=== PATIENT | male | born 2000 | race Caucasian/White ===

== ENCOUNTER 2020-07-26 16:19 | Inpatient (IN) | payer OTHER, SELFPAY ==
[2020-07-26] VITALS (15 sets, daily range): BP systolic 107–179; BP diastolic 50–97; PULSE 121–161; RESP 18–30; TEMP 36.4–36.8; O2SAT 96–99; BMI 25.6; BMI 26.0; BMI 25.9
--- NOTE | 2020-07-26 16:52 | EKG12_ITS ---
Test Reason : CP Blood Pressure : / mmHG Vent. Rate : 126 BPM Atrial Rate : 126 BPM P-R Int : 152 ms QRS Dur : 084 ms QT Int : 274 ms P-R-T Axes : 069 051 035 degrees QTc Int : 396 ms Poor data quality, interpretation may be adversely affected Sinus tachycardia Possible Left atrial enlargement Confirmed by RAHUL MCKEON, KAYDEN ([id number]), international editorial producer ZAIDA DRUMMOND ([id number]) on 07/27/2020 1:13:07 PM Referred By: MANUEL Confirmed By:KAYDEN KAY MD
--- NOTE | 2020-07-26 16:54 | ED.VIS.GEN ---
History of Present Illness Chief Complaint: Nausea/Vomiting Informant: Patient Onset: Today Current Severity: Moderate Maximum Severity: Moderate Narrative: Patient present secondary to nausea and vomiting all day today. He is not been able to keep down even liquids. He states he started getting some cramping in his abdomen and back is concerned that he is too dehydrated. He is type I diabetic and has an insulin pump. He has not been able to check his blood sugar. He does report that he is at the end of his 2-week contact tracing after being exposed to Covid and he has had no symptoms until today. - Past Medical History (1) Diabetes type I Status: Chronic Past Medical History - Allergies and Home Meds Allergies/Adverse Reactions: Allergies No Known Allergies Allergy (Verified 07/26/20 16:19) Primary Care Physician: Jhon Larry III, MD [Primary Care Provider] - Prior records reviewed: Yes Smoking Status: Never smoker Review of Systems General: Denies: Chills, Fever Eyes: Denies: Visual changes - bilaterally ENT: Denies: Bilateral ear pain Cardiovascular: Reports: Chest pain - Patient developed chest pain after having blood work drawn Respiratory: Denies: Dyspnea Gastrointestinal: Reports: Abdominal pain, Nausea, Vomiting. Denies: Diarrhea Genitourinary: Denies: Dysuria Musculoskeletal: Denies: Swelling, Extremity Pain Skin: Denies: Rash Neurological: Denies: Headache Hematologic: Denies: Easy bruising, Easy bleeding Allergy: Denies: Uticaria Physical Exam Vital Signs/Narrative: Vital Signs Temp Pulse Resp BP Pulse Ox 07/26/20 16:20 97.6 F L 135 H 18 143/90 H 97 07/26/20 16:19 121 H 19 H 98 Inital Vital Signs reviewed: Yes General: Well nourished, Well developed ENT: Dry mucous membranes Neck: Supple Cardiovascular: Tachycardia Respiratory: No distress, CTA bilaterally Abdomen: Soft, Nontender, Hypoactive bowel sounds Extremities: Nontender Skin: Normal color Neurological: Alert, Oriented x3 Psychological: - - Anxious Diagnostic/Tx/Re-eval Chest X-Ray - ED: 1 View, Read by ED Physician, Normal, Heart, Lungs, Mediastinum Impressions Chest X-Ray 07/26/20 16:55 IMPRESSION: No acute thoracic pathology. Electronically Signed: Jace Regan MD at 17:19 EST Tel , Service support , 07/26/20 16:55 Chest 1 View (Portable) [RAD] Stat Laboratory Results 07/26/20 07/26/20 07/26/20 16:25 16:25 16:25 WBC 33.0 H* RBC 5.96 Hgb 18.3 H* Hct 52.0 MCV 87.2 MCH 30.7 MCHC 35.2 RDW Std Deviation 38.1 RDW Coeff of Maribell 12.0 Plt Count 610 H MPV 10.2 Immature Gran % (Auto) 1.200 H Neut % (Auto) 84.4 H Lymph % (Auto) 9.5 L Mcnairy % (Auto) 4.4 Eos % (Auto) 0.0 Baso % (Auto) 0.5 Absolute Neuts (auto) 27.9 H Absolute Lymphs (auto) 3.13 Nucleated RBC % 0 Sodium 132 L Potassium 5.4 H Chloride 97 L Carbon Dioxide 8.0 L* Anion Gap 27 H BUN 25 H Creatinine 1.94 H Estim Creat Clear Calc 58.27 Est GFR (MDRD) Af Amer 56 L Est GFR (MDRD) Non-Af 46 L BUN/Creatinine Ratio 12.9 Glucose 562 H* Calcium 10.0 Phosphorus 8.6 H Magnesium 2.9 H Total Bilirubin 0.70 AST 14 L ALT 26 Alkaline Phosphatase 165 H Total Protein 9.3 H Albumin 5.0 Globulin 4.3 H Albumin/Globulin Ratio 1.2 Acetone Level MODERATE H POC Glucose 07/26/20 17:08 WBC RBC Hgb Hct MCV MCH MCHC RDW Std Deviation RDW Coeff of Maribell Plt Count MPV Immature Gran % (Auto) Neut % (Auto) Lymph % (Auto) Mcnairy % (Auto) Eos % (Auto) Baso % (Auto) Absolute Neuts (auto) Absolute Lymphs (auto) Nucleated RBC % Sodium Potassium Chloride Carbon Dioxide Anion Gap BUN Creatinine Estim Creat Clear Calc Est GFR (MDRD) Af Amer Est GFR (MDRD) Non-Af BUN/Creatinine Ratio Glucose Calcium Phosphorus Magnesium Total Bilirubin AST ALT Alkaline Phosphatase Total Protein Albumin Globulin Albumin/Globulin Ratio Acetone Level POC Glucose > 500 H* - EKG Initial EKG Interpretation: Sinus Tachycardia - Sinus tach at 117. Irregular baseline especially in the lateral precordial leads, but no acute ischemia noted. Follow-up EKG Interpretation: Sinus Tachycardia - Sinus tach at 126 with poor baseline in lead V3, V4, and V6. These leads are essentially nonreadable. No acute ischemia noted. - Medical Decision Making Patient was given Reglan and Benadryl along with a dose of Protonix to help with acid reflux. He developed chest pain after labs were drawn. EKG x2 reveals no ischemia. Chest x-ray is unremarkable. Blood work does confirm patient is in DKA. 2 L of IV fluid of been ordered along with insulin drip. Because he has been in contact tracing for Covid I will obtain a rapid Covid test, however my suspicion for this is extremely low. Regardless he will require admission to ICU for DKA. I will speak with the hospitalist. - Critical Care Time Critical care time (excluding procedures): 30-74 minutes ED Disposition - Plan for ED Patient: Disposition: Acute Care Hospital [facility] Diagnosis: DKA (diabetic ketoacidoses) Referrals: Jhon Larry III, MD [Primary Care Provider] -
--- NOTE | 2020-07-26 16:55 | RAD_ITS ---
STUDY: X-RAY CHEST REASON FOR EXAM: Male, 19 years old. Chest pain TECHNIQUE: Frontal view of the chest COMPARISON: None. FINDINGS: The lungs are clear. There are no pleural effusions. There is no pneumothorax. The heart is normal in size. The visualized osseous structures are within normal limits. RAD/Chest 1 View (Portable) IMPRESSION: No acute thoracic pathology. Electronically Signed: Jace Regan MD at 17:19 EST Tel , Service support ,
--- NOTE | 2020-07-26 17:01 | EKG12_ITS ---
Test Reason : VOMITING Blood Pressure : / mmHG Vent. Rate : 117 BPM Atrial Rate : 117 BPM P-R Int : 146 ms QRS Dur : 086 ms QT Int : 324 ms P-R-T Axes : 077 064 048 degrees QTc Int : 451 ms Sinus tachycardia Possible Left atrial enlargement Borderline ECG Confirmed by RAHUL MCKEON, KAYDEN ([id number]), senior editor ZAIDA DRUMMOND ([id number]) on 07/27/2020 1:16:06 PM Referred By: MANUEL Confirmed By:KAYDEN KAY MD
[2020-07-26] MEDS: Metoclopramide 10 MG/2 ML Vial IV (17:02)
[2020-07-26] MEDS: DiphenhydrAMINE 50 MG/ML Syringe 25 MG IV (17:02)
[2020-07-26 17:04] LABS: Absolute Lymphocyte Count 3.13 X10^3/uL (0.83-4.51); Absolute Neutrophil Count 27.9 X10^3/uL (2.0-7.7); Basophil# 0.17 X10^3/uL; Basophil% 0.5 % (0-1); Eosinophil# 0.01 X10^3/uL; Lymphocyte # 3.13 X10^3/ul (4.0); Lymphocyte % 9.5 % (19-41); Mean Corp Hgb Conc 35.2 g/dL (32-36); Mean Corpuscular Hgb 30.7 pg (27.0-32.0); Mean Corpuscular Volume 87.2 fL (80-94); Mean Platelet Vol. 10.2 fl (6.2-12.0); Monocyte# 1.44 X10^3/uL; Monocyte% 4.4 % (0-10); NRBC Flagged by Analyzer 0 % (0-5); Neutrophil # 27.85 X10^3/uL (2.7-7.7); Neutrophil % 84.4 % (47-70); POSITIVE COUNT YES; POSITIVE DIFFERENTIAL YES; Platelet Count 610 K/mm3 (150-450); RBC Distribution Width SD 38.1 fl (35.1-43.9); Red Blood Count 5.96 M/mm3 (4.6-6.2)
[2020-07-26] MEDS: 0.9% Normal Saline 1,000 ML 999 ML IV ×3 (17:08→18:30)
[2020-07-26 17:10] LABS: Differential Indicated SCAN CRITERIA MET; Hemoglobin 18.3 g/dL (13.0-16.5)
[2020-07-26 17:15] LABS: Bedside Glucose > 500 mg/dL (70-110)
--- NOTE | 2020-07-26 17:18 | ED.RN ---
PT C/O INCREASED CHEST PAIN. O2 VIA NC PLACED. CALLED FOR EKG. DR CHOUDHURY NOTIFIED
[2020-07-26 17:26] LABS: ALB/GLOB Ratio 1.2 RATIO (0.9-2.4); AST(SGOT) 14 U/L (15-37); Alanine Aminotransfer ALT/SGPT 26 U/L (16-61); Alkaline Phosphatase 165 U/L (45-117); Anion Gap 27 (5-15); BUN 25 mg/dL (7-18); BUN/Creat Ratio 12.9 RATIO (10-20); Chloride 97 mmol/L (98-107); Creatinine, Serum 1.94 mg/dL (0.70-1.30); EST Glomerular Filtration Rate 46 mL/min (>60); Est Glom Filt Rate - Afr Amer 56 mL/min (>60); Estimated Creatinine Clearance 58.27 ml/min; Globulin 4.3 g/dL (2.2-4.2); Glucose 562 mg/dL (74-106); Magnesium 2.9 mg/dL (1.6-2.6); Phosphorus 8.6 mg/dL (2.5-4.9); Potassium 5.4 mmol/L (3.5-5.1); Protein, Total 9.3 g/dL (6.4-8.2); Sodium Level 132 mmol/L (136-145)
[2020-07-26 17:34] LABS: Differential Comment SEE COMMENTS
[2020-07-26 17:35] LABS: Platelet Estimate MKD INC (ADEQ)
[2020-07-26 17:37] LABS: Anisocytosis RARE; Red Cell Morphology N CHROM NORMAL (NORM C&C)
--- NOTE | 2020-07-26 17:39 | NURSING ---
HOSPITALIST PAGED DR BALLESTEROS FOR DR CHOUDHURY
--- NOTE | 2020-07-26 17:44 | NURSING ---
ICU [facility]
[2020-07-26] MEDS: HYDROmorphone 0.5 MG/0.5 ML SYRINGE IV ×2 (17:55→21:39)
--- NOTE | 2020-07-26 17:58 | NURSING ---
CV ICU 203
--- NOTE | 2020-07-26 17:59 | HP.PCM_ITS ---
Problem List (1) HIPOLITO (acute kidney injury) Status: Acute (2) Hyperkalemia Status: Acute (3) Leukocytosis Status: Acute (4) Erythrocytosis Status: Acute (5) Thrombocytosis Status: Acute (6) Hyponatremia Status: Acute (7) Hypochloremia Status: Acute (8) Hyperphosphatemia Status: Acute (9) Hypermagnesemia Status: Acute History of Present Illness Date of Admission: 07/26/20 Mr. Lacey is a 19 year old WM with a PMH of DM-1 that was diagnosed when he was 15 years old who presented to the emergency department on 07/26/2020 with abdominal pain nausea and vomiting that started approximately 3 AM this morning. The patient states he was in his normal state of health yesterday but at approximately 3 AM started having significant abdominal pain with nausea and vomiting and at about 9-10 o'clock this morning he took off his insulin pump. He had a recent pump site infection on the left abdomen and has just finished antibiotics for this. He is also just finished contact tracing for COVID-19 and therefore rapid Covid test was done in the emergency department which was negative upon admission. He is a patient at [facility] with Dr. William Wyatt he states that he has been on an insulin pump for approximately a year but has been questioning how its functioning lately with his recent site infection on the left. He reports this is his first episode of DKA. Other than his nausea and vomiting, he is complaining of back pain and extreme thirst. Vital signs in the emergency department show the patient is afebrile with a heart rate in the 120s to 140s, he is hypertensive, he is tachypneic and his oxygen saturations are within normal limits on room air from 97 to 98%. His laboratory data shows a marked leukocytosis with a white count of 33, and elevated hemoglobin at 18.3 and elevated platelet count at 610. I suspect this is all secondary to hemoconcentration. His BMP shows mild hyponatremia at 132, mild hyper kalemia at 5.4 is serum bicarb is 8, his anion gap is 27, his BUN is 25 and his serum creatinine is 1.94. LFTs are within normal limits. His serum glucose on the BMP was 562 and he has moderate acetone level. He will be admitted to the ICU for IV fluids and an insulin drip until his DKA resolves. Past Medical History Past Medical History (Chronic Problems): Chronic Problems Diabetes type I (Chronic) Allergies No Known Allergies Allergy (Verified 07/26/20 16:19) Home Medications: Ambulatory Orders Medication Instructions Recorded Insulin Basal Pump (Pt's Own) 1 unit CONT INF UD 07/26/20 [Pump, Basal] Surgical History: no surgical history Lives: With Family Smoking Status: Never smoker Tobacco Use: Chew Alcohol: Rare Drugs: None - *Family History Maternal History Items: No pertinent history Paternal History Items: No pertinent history Review of Systems Constitutional: Reports: Malaise, Weakness, Fatigue. Denies: Anorexia, Chills, Fever, Night Sweats, Weight Change Eyes: Denies: Blurred vision, Double vision, Drainage, Eyelid Inflammation, Pain, Redness, Vision Change HEENT: Reports: - - Very dry mouth. Denies: Difficulty Hearing, Difficulty Swallowing, Ear Pain, Eye Pain, Hard of Hearing, Head Aches, Hearing Changes, Nasal bleeding, Nasal Congestion, Post Nasal Drip, Sinus Congestion, Sinus Drainage, Sore Throat, Visual Changes Cardiovascular: Denies: Chest Pain, Claudication, Chest Pressure, Chest Tightness, Edema, Heaviness, Light Headedness, Orthopnea, Palpitations, Paroxysmal Noc. Dyspnea, Syncope Respiratory: Denies: Cough, Hemoptysis, Pleuritic Pain, Shortness of Breath, Shortness of breath at rest, Shortness of breath upon exertion, Sputum production, Wheezing Gastrointestinal: Reports: Abdominal Pain, Nausea, Vomiting. Denies: Constipation, Diarrhea, Dyspepsia, Hematemesis, Hematochezia, Melena Genitourinary: Denies: Dysuria, Frequency, Hematuria, Hesitancy, Incontinence, Nocturia, Retention, Urgency Musculoskeletal: Reports: Back Pain, Muscle pain. Denies: Hand Pain, Joint Pain, Joint stiffness, Joint swelling, Joint Tenderness, Neck Pain Skin: Denies: Dryness, Jaundice, Lesions, Pruritis, Rash, Skin Changes, Wounds Neurological: Denies: Balance problems, Blurred vision, Double vision, Change in Speech, Slurred speech, Confusion, Difficulty swallowing, Focal weakness, Headaches, Incoordination, Numbness, Tingling, Tremor, Seizures Psychiatric: Denies: Anxiety, Depression Endocrine: Reports: Polydipsia. Denies: Change in Body Habitus, Heat/ Cold Intolerance, Polyuria Hematologic/ Lymphatic: Denies: Adenopathy, Anemia, Easy Bruising, Easy Bleeding, Petechiae, Purpura VTE Information - Inpt Only VTE Present on Admission: No VTE Mechan Device Prophylaxis: None VTE Pharm Prophylaxis ordered?: Yes Patient Problems: Active and Suspected Problems DKA (diabetic ketoacidoses) (Acute) - Physical Exam Vitals/I&O's: Vital Signs Temp Pulse Resp BP Pulse Ox 97.8 F 140 H 21 H 163/87 H 99 07/26/20 17:45 07/26/20 17:45 07/26/20 17:45 07/26/20 17:45 07/26/20 17:45 Oxygen Flow Rate (L/min) 2 Oxygen Delivery Method Nasal Cannula Weight: 76.4 kg Body Mass Index (BMI) 25.6 Finger Stick Blood Glucose 561 Intake and Output for Last 24 Hours 07/24/20 07/25/20 07/26/20 23:59 23:59 23:59 Intake Total 110 / 110 Balance 110 / 110 General: Alert, Oriented x3, Cooperative, Well developed, Well nourished, - - Patient appears uncomfortable and is writhing around in bed states this is related to his back pain that is having right now HEENT: Atraumatic, PERRLA, EOMI, Normocephalic, EAC Clear Oral: No Gingival or Mucosal Lesions/ Ulcerations, Dry Mucosa Neck: Supple, No JVD, Negative Carotid Bruits, Negative Hepatojugular Reflux, No Nodes, No Nuchal Rigidity, Trachea Midline, Thyroid Normal Size and Texture Lungs: Clear to auscultation, Normal air movement, No rhonchi, No wheeze, No rales Cardiovascular: Regular Rhythm, Normal S1, Normal S2, No murmurs, No Ectopic Activity, No rub noted, No Gallop, Tachycardic Abdomen: Bowel Sounds Present, Soft, Non Tender, Non-Distended, - - Left abdominal insulin pump site no significant erythema noted but does appear that there may have been some recent infection-no purulent drainage, no tenderness No significant abnormality in the right abdominal area where his insulin pump is normally located Extremities: No clubbing, No cyanosis, No edema, Capillary Refill Less than 3 Seconds, Peripheral Pulses Normal Skin: No rashes, No breakdown Musculoskeletal: No Tenderness to Palpation of Joints or Extremities, No Muscle Wasting Lymphatic: No Cervical, Supraclavicular, or Inguinal Adenopathy Neurological: Cranial nerves II-XII grossly intact, Deep Tendon Reflexes 2+/4 and Symmetrical, Neuro grossly intact, Motor Exam 5/5 strength throughout, Mus louisa tone normal, Sensory exam intact to light touch and pain, Coordination normal Psych/Mental Status: Normal Affect, Appropriate Laboratory Results 07/26/20 16:25: Sodium 132 L, Potassium 5.4 H, Chloride 97 L, Carbon Dioxide 8.0 L*, Anion Gap 27 H, BUN 25 H, Creatinine 1.94 H, Estim Creat Clear Calc 58.27, Est GFR (MDRD) Af Amer 56 L, Est GFR (MDRD) Non-Af 46 L, BUN/Creatinine Ratio 12.9, Glucose 562 H*, Calcium 10.0, Phosphorus 8.6 H, Magnesium 2.9 H, Total Bilirubin 0.70, AST 14 L, ALT 26, Alkaline Phosphatase 165 H, Total Protein 9.3 H, Albumin 5.0, Globulin 4.3 H, Albumin/Globulin Ratio 1.2 07/26/20 16:25: Acetone Level MODERATE H 07/26/20 16:25: WBC 33.0 H*, RBC 5.96, Hgb 18.3 H*, Hct 52.0, MCV 87.2, MCH 30. 7, MCHC 35.2, RDW Std Deviation 38.1, RDW Coeff of Maribell 12.0, Plt Count 610 H, MPV 10.2, Immature Gran % (Auto) 1.200 H, Neut % (Auto) 84.4 H, Lymph % (Auto) 9.5 L, Archer % (Auto) 4.4, Eos % (Auto) 0.0, Baso % (Auto) 0.5, Absolute Neuts (auto) 27.9 H, Absolute Lymphs (auto) 3.13, Nucleated RBC % 0, Differential Comment SEE COMMENTS, Diff Path Review Jessie maciel Platelet Estimate [employer], RBC Morphology N CHROM, Anisocytosis RARE 07/26/20 17:08: POC Glucose > 500 H* Current Medications Dextrose (Dextrose 50%-Water 25 Gm/50 Ml Disp.Syrin) 0 gm IV X1 PRN; Protocol PRN Reason: Hypoglycemia Protocol Sodium Chloride () 1,000 mls @ 999 mls/hr IV .Q1H1M [facility] Stop: 07/26/20 18:55 Last Admin: 07/26/20 17:08 Dose: 999 mls/hr Documented by: Insulin Human Lispro 100 unit/ (Sodium Chloride) 100 mls @ 7.64 mls/hr CONT INF .[id number] [facility]; Protocol Assessment/Plan All Active Problems DKA (diabetic ketoacidoses) (Acute) HIPOLITO (acute kidney injury) (Acute) Hyperkalemia (Acute) Leukocytosis (Acute) Erythrocytosis (Acute) Thrombocytosis (Acute) Hyponatremia (Acute) Hypochloremia (Acute) Hyperphosphatemia (Acute) Hypermagnesemia (Acute) DKA -DKA protocol with insulin drip and IV fluids -N.p.o. except for ice chips -Repeat acetone at midnight and then again in the a.m. -Every 4 hours BMPs -Every hour blood sugars -Electrolyte replacement as needed DM-1 -Diagnosed in 2017 -Patient has had an insulin pump for approximately a year -Patient follows with Dr. William Wyatt and Tyra Ross at [facility] -Will need insulin pump brought in after DKA is resolved -Check TSH HIPOLITO secondary to dehydration -Aggressive IV fluids -Repeat BMP in a.m. Anion gap metabolic acidosis -Treat DKA -Serial BMPs Hyperkalemia -Secondary to cellular shifts with acidosis -Expect hypokalemia to become a problem as acidosis resolved -We will replace potassium as needed Hypermagnesemia -Should resolve with IV fluids and acidosis correction -Repeat in a.m. Hyperphosphatemia -Should resolve with IV fluids and acidosis correction -Repeat in a.m. Leukocytosis -Patient is afebrile -Doubt infection -Suspect hemoconcentration -IV fluids repeat CBC in a.m. -No need for IV antibiotics at this time Erythrocytosis -2/2 Hemoconcentration due to dehydration -Repeat CBC in a.m. Thrombocytosis -2/2 hemoconcentration due to dehydration -Repeat CBC in a.m. Hypovolemic hyponatremia -IV fluids -Repeat BMP in a.m. Recent superficial abdominal skin infection secondary to insulin pump site -Patient recently completed antibiotics for this -Site appears improved overall with no purulent drainage or erythema surrounding -Recommend frequent site changes DVT prophylaxis -Lovenox CODE STATUS -Full code Critical care time greater than 31 minutes Procedures: [id number] Critial Care 1st Hr
[2020-07-26 18:50] LABS: Magnesium 2.7 mg/dL (1.6-2.6)
[2020-07-26] MEDS: Orphenadrine 60 MG/2 ML Ampul IV (19:18)
[2020-07-26] MEDS: 0.9% Normal Saline 1,000 ML 500 ML IV (19:35)
[2020-07-26 19:41] LABS: Bedside Glucose > 500 mg/dL (70-110)
[2020-07-26 19:41] LABS: Bedside Glucose 458 mg/dL (70-110)
[2020-07-26 19:45] LABS: Hemoglobin A1c 10.7 % (3.8-5.6)
[2020-07-26] MEDS: 0.9% Normal Saline 1,000 ML 250 ML IV (21:33)
[2020-07-26 22:55] LABS: Bedside Glucose 362 mg/dL (70-110)
[2020-07-26 22:55] LABS: Bedside Glucose 382 mg/dL (70-110)
[2020-07-26 23:34] LABS: Anion Gap 19 (5-15); BUN 20 mg/dL (7-18); Calcium,Total 8.5 mg/dL (8.5-10.1); Chloride 111 mmol/L (98-107); Creatinine, Serum 1.67 mg/dL (0.70-1.30); EST Glomerular Filtration Rate 55 mL/min (>60); Est Glom Filt Rate - Afr Amer 67 mL/min (>60); Estimated Creatinine Clearance 67.69 ml/min; Glucose 342 mg/dL (74-106); Potassium 6.1 mmol/L (3.5-5.1); Sodium Level 137 mmol/L (136-145)
[2020-07-27] VITALS (21 sets, daily range): BP systolic 103–132; BP diastolic 43–73; PULSE 80–121; RESP 14–22; TEMP 36.6–37.1; O2SAT 95–99
[2020-07-27] MEDS: Sodium Polystyrene Sulfonate 15 GM/60 ML UDC PO (00:25)
[2020-07-27 00:56] LABS: Bedside Glucose 360 mg/dL (70-110)
[2020-07-27 00:56] LABS: Bedside Glucose 313 mg/dL (70-110)
[2020-07-27] MEDS: 0.9% Normal Saline 1,000 ML 150 ML IV (01:35)
[2020-07-27 03:16] LABS: Bedside Glucose 313 mg/dL (70-110)
[2020-07-27 03:16] LABS: Bedside Glucose 273 mg/dL (70-110)
[2020-07-27 03:25] LABS: Bedside Glucose 281 mg/dL (70-110)
[2020-07-27 03:29] LABS: Absolute Lymphocyte Count 3.03 X10^3/uL (0.83-4.51); Absolute Neutrophil Count 21.8 X10^3/uL (2.0-7.7); Basophil# 0.05 X10^3/uL; Basophil% 0.2 % (0-1); Eosinophil# 0.03 X10^3/uL; Eosinophils% 0.1 % (0-5); Hemoglobin 15.3 g/dL (13.0-16.5); Lymphocyte # 3.03 X10^3/ul (4.0); Lymphocyte % 11.2 % (19-41); Mean Corp Hgb Conc 35.6 g/dL (32-36); Mean Corpuscular Hgb 30.4 pg (27.0-32.0); Mean Corpuscular Volume 85.5 fL (80-94); Mean Platelet Vol. 9.4 fl (6.2-12.0); Monocyte% 6.7 % (0-10); NRBC Flagged by Analyzer 0 % (0-5); Neutrophil # 21.83 X10^3/uL (2.7-7.7); Neutrophil % 80.8 % (47-70); POSITIVE DIFFERENTIAL YES; Platelet Count 396 K/mm3 (150-450); RBC Distribution Width CV 12.4 % (11.6-14.6); RBC Distribution Width SD 38.4 fl (35.1-43.9); Red Blood Count 5.03 M/mm3 (4.6-6.2)
[2020-07-27 03:30] LABS: Differential Indicated SCAN CRITERIA MET
[2020-07-27 03:54] LABS: Anion Gap 13 (5-15); BUN 15 mg/dL (7-18); BUN/Creat Ratio 9.5 RATIO (10-20); Calcium,Total 8.5 mg/dL (8.5-10.1); Chloride 111 mmol/L (98-107); Creatinine, Serum 1.58 mg/dL (0.70-1.30); EST Glomerular Filtration Rate 59 mL/min (>60); Est Glom Filt Rate - Afr Amer 71 mL/min (>60); Estimated Creatinine Clearance 71.55 ml/min; Glucose 287 mg/dL (74-106); Magnesium 2.3 mg/dL (1.6-2.6); Phosphorus 2.5 mg/dL (2.5-4.9); Potassium 4.1 mmol/L (3.5-5.1); Sodium Level 138 mmol/L (136-145); Thyroid Stim Hormone (TSH) 0.25 uIU/mL (0.358-3.74)
[2020-07-27] MEDS: Acetaminophen 325 MG Tablet 650 MG PO (05:15)
[2020-07-27] MEDS: Dext 5%-0.45% NS 1,000 ML 150 ML IV (05:20)
[2020-07-27 06:11] LABS: Bedside Glucose 226 mg/dL (70-110)
[2020-07-27 06:11] LABS: Bedside Glucose 230 mg/dL (70-110)
[2020-07-27 07:06] LABS: Anion Gap 12 (5-15); BUN 15 mg/dL (7-18); Calcium,Total 8.6 mg/dL (8.5-10.1); Chloride 112 mmol/L (98-107); EST Glomerular Filtration Rate 62 mL/min (>60); Est Glom Filt Rate - Afr Amer 76 mL/min (>60); Estimated Creatinine Clearance 75.37 ml/min; Glucose 236 mg/dL (74-106); Potassium 3.9 mmol/L (3.5-5.1); Sodium Level 140 mmol/L (136-145)
--- NOTE | 2020-07-27 07:25 | PCM.PN.HOSP ---
Patient Problems: Active and Suspected Problems DKA (diabetic ketoacidoses) (Acute) HIPOLITO (acute kidney injury) (Acute) Hyperkalemia (Acute) Leukocytosis (Acute) Erythrocytosis (Acute) Thrombocytosis (Acute) Hyponatremia (Acute) Hypochloremia (Acute) Hyperphosphatemia (Acute) Hypermagnesemia (Acute) Reason for Visit: Follow-up on acute DKA Subjective: Patient was seen and examined. Denied any new complaints. No fevers or chills. Objective: Physical exam: General: Alert, oriented x3, cooperative, well developed, well nourished HEENT: Atraumatic, PERRLA, EOMI, Normocephalic, EAC Clear Oral: No mucosa Neck: Supple, No JVD Lungs: Clear to auscultation, Normal air movement, No rhonchi, No wheeze, No rales Cardiovascular: Regular Rhythm, Normal S1, Normal S2, No murmurs, No Ectopic Activity, No rub noted, No Gallop, Tachycardic Abdomen: Bowel sounds present, soft, non-tender, non-distended, left abdominal insulin pump site no significant erythema noted Extremities: No edema Skin: No rashes, No breakdown Musculoskeletal: No Tenderness to Palpation of Joints or Extremities, No Muscle Wasting Lymphatic: No Cervical, Supraclavicular, or Inguinal Adenopathy Neurological: Cranial nerves II-XII grossly intact Psych/Mental Status: Normal Affect, Appropriate Vitals/I&O's: Vital Signs Temp Pulse Resp BP Pulse Ox 98.8 F 94 15 113/55 L 97 07/27/20 04:00 07/27/20 07:00 07/27/20 07:00 07/27/20 07:00 07/27/20 07:00 Oxygen Flow Rate (L/min) 2 Oxygen Delivery Method Room Air Weight: 78.9 kg Body Mass Index (BMI) 25.9 Finger Stick Blood Glucose 458 Intake and Output for Last 24 Hours 07/25/20 07/26/20 07/27/20 23:59 23:59 23:59 Intake Total 4245.61 / 4248.46 1759.65 / 1759.65 Output Total 950 / 950 400 / 400 Balance 3295.61 / 3298.46 1359.65 / 1359.65 Microbiology Past 72 Hours 07/26/20 17:30 Mucosa - Nose SARS-CoV-2 Antigen (Rapid) - Final Laboratory Results 07/26/20 16:25: Sodium 132 L, Potassium 5.4 H, Chloride 97 L, Carbon Dioxide 8.0 L*, Anion Gap 27 H, BUN 25 H, Creatinine 1.94 H, Estim Creat Clear Calc 58.27, Est GFR (MDRD) Af Amer 56 L, Est GFR (MDRD) Non-Af 46 L, BUN/Creatinine Ratio 12.9, Glucose 562 H*, Calcium 10.0, Phosphorus 8.6 H, Magnesium 2.9 H, Total Bilirubin 0.70, AST 14 L, ALT 26, Alkaline Phosphatase 165 H, Total Protein 9.3 H, Albumin 5.0, Globulin 4.3 H, Albumin/Globulin Ratio 1.2 07/26/20 16:25: Acetone Level MODERATE H 07/26/20 16:25: WBC 33.0 H*, RBC 5.96, Hgb 18.3 H*, Hct 52.0, MCV 87.2, MCH 30.7, MCHC 35.2, RDW Std Deviation 38.1, RDW Coeff of Maribell 12.0, Plt Count 610 H, MPV 10.2, Immature Gran % (Auto) 1.200 H, Neut % (Auto) 84.4 H, Lymph % (Auto) 9.5 L, Sanborn % (Auto) 4.4, Eos % (Auto) 0.0, Baso % (Auto) 0.5, Absolute Neuts (auto) 27.9 H, Absolute Lymphs (auto) 3.13, Nucleated RBC % 0, Differential Comment SEE COMMENTS, Diff Path Review Jessie maciel, Platelet Estimate D INC, RBC Morphology N CHROM, Anisocytosis RARE 07/26/20 16:25: Hemoglobin A1c 10.7 H 07/26/20 16:25: Magnesium 2.7 H 07/26/20 17:08: POC Glucose > 500 H* 07/26/20 18:29: POC Glucose > 500 H* 07/26/20 19:33: POC Glucose 458 H* 07/26/20 20:35: POC Glucose 382 H 07/26/20 21:32: POC Glucose 362 H 07/26/20 22:58: POC Glucose 360 H 07/26/20 23:00: Sodium 137, Potassium 6.1 H*, Chloride 111 H, Carbon Dioxide 7.0 L*, Anion Gap 19 H, BUN 20 H, Creatinine 1.67 H, Estim Creat Clear Calc 67.69, Est GFR (MDRD) Af Amer 67, Est GFR (MDRD) Non-Af 55 L, BUN/Creatinine Ratio 12.0, Glucose 342 H, Calcium 8.5 07/26/20 23:53: POC Glucose 313 H 07/27/20 00:58: POC Glucose 273 H 07/27/20 02:24: POC Glucose 313 H 07/27/20 03:15: Acetone Level MODERATE H 07/27/20 03:15: WBC 27.0 H, RBC 5.03, Hgb 15.3, Hct 43.0, MCV 85.5, MCH 30.4, MCHC 35.6, RDW Std Deviation 38.4, RDW Coeff of Maribell 12.4, Plt Count 396, MPV 9.4, Immature Gran % (Auto) 1.000 H, Neut % (Auto) 80.8 H, Lymph % (Auto) 11.2 L, Sanborn % (Auto) 6.7, Eos % (Auto) 0.1, Baso % (Auto) 0.2, Absolute Neuts (auto) 21.8 H, Absolute Lymphs (auto) 3.03, Nucleated RBC % 0, Diff Path Review October07/27/20 03:15: Sodium 138, Potassium 4.1, Chloride 111 H, Carbon Dioxide 14.0 L, Anion Gap 13, BUN 15, Creatinine 1.58 H, Estim Creat Clear Calc 71.55, Est GFR (MDRD) Af Amer 71, Est GFR (MDRD) Non-Af 59 L, BUN/Creatinine Ratio 9.5 L, Glucose 287 H, Calcium 8.5, Phosphorus 2.5, Magnesium 2.3, TSH 0.25 L 07/27/20 03:18: POC Glucose 281 H 07/27/20 05:12: POC Glucose 230 H 07/27/20 06:08: POC Glucose 226 H 07/27/20 06:45: Sodium 140, Potassium 3.9, Chloride 112 H, Carbon Dioxide 16.0 L, Anion Gap 12, BUN 15, Creatinine 1.50 H, Estim Creat Clear Calc 75.37, Est GFR (MDRD) Af Amer 76, Est GFR (MDRD) Non-Af 62, BUN/Creatinine Ratio 10.0, Glucose 236 H, Calcium 8.6 Current Medications Acetaminophen (Acetaminophen 325 Mg Tablet) 650 mg PO Q6H PRN PRN PRN Reason: Pain Score 1-10/Temp > 100.7 F Last Admin: 07/27/20 05:15 Dose: 650 mg Documented by: Dextrose (Dextrose 50%-Water 25 Gm/50 Ml Disp.Syrin) 0 gm IV X1 PRN; Protocol PRN Reason: HYPOGLYCEMIA Enoxaparin Sodium (Enoxaparin 40 Mg/0.4 Ml Syringe) 40 mg SC DAILY [facility] Hydromorphone HCl (Hydromorphone 0.5 Mg/0.5 Ml Syringe) 0.5 mg IV Q4H PRN PRN PRN Reason: Pain Score 6-10 Last Admin: 07/26/20 21:39 Dose: 0.5 mg Documented by: Insulin Human Lispro 100 unit/ (Sodium Chloride) 100 mls @ 7.64 mls/hr CONT INF .Q13H6M [facility]; Protocol Last Infusion: 07/27/20 07:00 Dose: 1.9 mls/hr Documented by: Sodium Chloride () 250 mls @ 15 mls/hr IV .[id number] PRN PRN Reason: Saline Flush Sodium Chloride () 250 mls @ 15 mls/hr IV .[id number] PRN PRN Reason: Additional IVPB Infusion Dextrose/Sodium Chloride () 1,000 mls @ 150 mls/hr IV .Q6H40M [facility] Last Admin: 07/27/20 05:20 Dose: 150 mls/hr Documented by: Ondansetron HCl (Ondansetron 4 Mg/2 Ml Vial) 4 mg IV Q8H PRN PRN PRN Reason: NAUSEA/VOMITING Sodium Chloride (0.9% Saline Lock 10 Ml Syringe) 10 - 40 ml IV UD PRN PRN Reason: SALINE FLUSH STROKE Vital Signs/Narrative: Vital Signs Temp Pulse Resp BP Pulse Ox 07/27/20 07:00 94 15 113/55 L 97 07/27/20 06:00 105 H 16 128/59 H 97 07/27/20 05:44 99 07/27/20 05:00 99 15 132/50 H 97 07/27/20 04:00 98.8 F 103 H 16 128/64 H 97 Medical Necessity - Tobacco Use Smoking Status: Never smoker Tobacco Use: Chew Assessment/Plan All Active Problems DKA (diabetic ketoacidoses) (Acute) HIPOLITO (acute kidney injury) (Acute) Hyperkalemia (Acute) Leukocytosis (Acute) Erythrocytosis (Acute) Thrombocytosis (Acute) Hyponatremia (Acute) Hypochloremia (Acute) Hyperphosphatemia (Acute) Hypermagnesemia (Acute) 1. Acute DKA, resolved, restarted on Lantus 10 units twice daily as well as Premeal insulin and insulin sliding scale 2. HIPOLITO secondary to dehydration, improved, creatinine is now 1.5 from 1.94 Continue on gentle IV fluids, repeat blood work in a.m. 3. DM, type I, on insulin pump Patient does not have his insulin pump available; requested that he brings it in 4. Hypomagnesemia/hypophosphatemia secondary to cellular shift, improved 5. Leukocytosis, reactive, no signs of infection, improved, repeat blood work in a.m. 6. Recent superficial abdominal cellulitis, appears resolved 7. DVT prophylaxis?Lovenox SC; early ambulation recommended Inpatient E&M: 47363 Subs Hosp L3
[2020-07-27 08:15] LABS: Bedside Glucose 221 mg/dL (70-110)
[2020-07-27 08:23] LABS: Free T3 1.3 pg/mL (2.18-3.98); T4 Free Direct 0.95 ng/dL (0.76-1.46)
[2020-07-27 08:56] LABS: Bedside Glucose 246 mg/dL (70-110)
[2020-07-27 09:31] LABS: Bedside Glucose 254 mg/dL (70-110)
[2020-07-27] MEDS: Enoxaparin 40 MG/0.4 ML Syringe SC (09:55)
[2020-07-27] MEDS: Insulin Lispro 100 UNIT/ML INSULN.PEN SC ×4 (10:04→17:14)
[2020-07-27 10:06] LABS: Bedside Glucose 214 mg/dL (70-110)
[2020-07-27 11:58] LABS: Pathologist Review Reviewed
[2020-07-27 11:59] LABS: Pathologist Review Reviewed
[2020-07-27] MEDS: 0.9% Normal Saline 1,000 ML 100 ML IV (12:31)
[2020-07-27 12:51] LABS: Bedside Glucose 365 mg/dL (70-110)
[2020-07-27] MEDS: Insulin Lispro 100 UNIT/ML INSULN.PEN 10 UNIT SC ×2 (13:26→17:13)
--- NOTE | 2020-07-27 14:40 | CASEMGMT ---
GHISLAINE DAS assessment: Face to Face with patient for initial transition planning/care coordination assessment. GHISLAINE DAS introduced self and role at [facility], pt voices understanding and consents to assessment at this time. Pt is sitting up in bed in no distress at this time. Pt is A/Ox4 at this time and answers all questions appropriately at this time. Care providers, pharmacy, and demographics verified/updated at this time. Presentation: Pt c/o N/V, abd cramping that started last night. Pt reports being diabetic Admitting dx: DKA PCP: Kendy ELLIS Specialists: bushra Skinner at [facility] Pharmacy: [facility] Quintanilla Insurance: UMR Prescription Benefit: UMR Living Will/HPOA: Pt states does not have LW/HPOA and declines AD info at this time. LNOK: Trent/Lidya Lacey, parents Living Arrangements: Pt states lives with parents in home and states no concerns at home at this time. Pt states is independent with ADL's. Transportation: Pt states drives self and states no transportation concerns at this time. DME/HHC: Pt states does have an insulin pump and has had a recent infection at site that was treated OP. Pt states no need for any further DME at this time. Pt states no hx of HHC or SNF in the past. Pt states no concerns with going home at time of discharge. Pt states is currently unemployed. Pt states does chew tobacco and occasionally drink ETOH. Pt states no further concerns/needs at this time. CM to follow for any further discharge planning/needs. Advised pt to ask for CM if any further questions/concerns/needs arise, voices understanding. Pt Goal: Home Plan: [place] GHISLAINE DAS
[2020-07-27 16:40] LABS: Bedside Glucose 253 mg/dL (70-110)
[2020-07-27 22:31] LABS: Bedside Glucose 189 mg/dL (70-110)
[2020-07-28] VITALS (8 sets, daily range): BP systolic 106–131; BP diastolic 50–73; PULSE 68–85; RESP 16–19; TEMP 36.6–36.9; O2SAT 97–98
[2020-07-28] MEDS: 0.9% Normal Saline 1,000 ML 125 ML IV ×4 (00:26→22:18)
--- NOTE | 2020-07-28 03:16 | PCS.PANDOC ---
PANDEMIC DOCUMENTATION INITIATED: Date: Time: 0384
[2020-07-28 06:06] LABS: Absolute Lymphocyte Count 3.01 X10^3/uL (0.83-4.51); Absolute Neutrophil Count 3.9 X10^3/uL (2.0-7.7); Basophil# 0.03 X10^3/uL; Basophil% 0.4 % (0-1); Eosinophil# 0.06 X10^3/uL; Eosinophils% 0.8 % (0-5); Hematocrit 36.1 % (40-54); Hemoglobin 13.2 g/dL (13.0-16.5); Lymphocyte # 3.01 X10^3/ul (4.0); Lymphocyte % 39.7 % (19-41); Mean Corp Hgb Conc 36.6 g/dL (32-36); Mean Corpuscular Hgb 32.5 pg (27.0-32.0); Mean Corpuscular Volume 88.9 fL (80-94); Mean Platelet Vol. 9.7 fl (6.2-12.0); Monocyte# 0.56 X10^3/uL; Monocyte% 7.4 % (0-10); NRBC Flagged by Analyzer 0 % (0-5); Neutrophil # 3.89 X10^3/uL (2.7-7.7); Neutrophil % 51.3 % (47-70); Platelet Count 192 K/mm3 (150-450); RBC Distribution Width SD 40.9 fl (35.1-43.9); Red Blood Count 4.06 M/mm3 (4.6-6.2); White Blood Count 7.6 K/mm3 (4.4-11.0)
[2020-07-28 06:36] LABS: AST(SGOT) 10 U/L (15-37); Alanine Aminotransfer ALT/SGPT 15 U/L (16-61); Alkaline Phosphatase 83 U/L (45-117); Anion Gap 9 (5-15); BUN 14 mg/dL (7-18); BUN/Creat Ratio 12.2 RATIO (10-20); Calcium,Total 8.1 mg/dL (8.5-10.1); Chloride 106 mmol/L (98-107); Creatinine, Serum 1.15 mg/dL (0.70-1.30); EST Glomerular Filtration Rate 85 mL/min (>60); Est Glom Filt Rate - Afr Amer 103 mL/min (>60); Globulin 2.9 g/dL (2.2-4.2); Glucose 346 mg/dL (74-106); Potassium 3.4 mmol/L (3.5-5.1); Protein, Total 5.9 g/dL (6.4-8.2); Sodium Level 138 mmol/L (136-145)
[2020-07-28 08:40] LABS: Bedside Glucose 393 mg/dL (70-110)
[2020-07-28] MEDS: Enoxaparin 40 MG/0.4 ML Syringe SC (08:40)
[2020-07-28] MEDS: Insulin Lispro 100 UNIT/ML INSULN.PEN SC ×2 (08:41→11:08)
--- NOTE | 2020-07-28 09:35 | CASEMGMT ---
Pt states normally uses continuous glucose monitoring but his transmitter was left in his dorm room. 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 Pt voices no further questions/concerns/needs at this time. Drea SCANLON CM
[2020-07-28] MEDS: Insulin Lispro 100 UNIT/ML INSULN.PEN 10 UNIT SC (11:07)
[2020-07-28 11:25] LABS: Bedside Glucose 414 mg/dL (70-110)
--- NOTE | 2020-07-28 11:57 | PCM.PN.HOSP ---
Patient Problems: Active and Suspected Problems DKA (diabetic ketoacidoses) (Acute) HIPOLITO (acute kidney injury) (Acute) Hyperkalemia (Acute) Leukocytosis (Acute) Erythrocytosis (Acute) Thrombocytosis (Acute) Hyponatremia (Acute) Hypochloremia (Acute) Hyperphosphatemia (Acute) Hypermagnesemia (Acute) Reason for Visit: Follow-up on acute DKA Subjective: Patient was seen and examined. His blood sugars are uncontrolled. Patient has recently changed his insulin pump sites. Objective: Physical exam: General: Alert, oriented x3, cooperative, well developed, well nourished HEENT: Atraumatic, PERRLA, EOMI, Normocephalic, EAC Clear Oral: No mucosa Neck: Supple, No JVD Lungs: Clear to auscultation, Normal air movement, No rhonchi, No wheeze, No rales Cardiovascular: Regular Rhythm, Normal S1, Normal S2, No murmurs, No Ectopic Activity, No rub noted, No Gallop, Tachycardic Abdomen: Bowel sounds present, soft, non-tender, non-distended, left abdominal insulin pump site no significant erythema noted Extremities: No edema Skin: No rashes, No breakdown Musculoskeletal: No Tenderness to Palpation of Joints or Extremities, No Muscle Wasting Lymphatic: No Cervical, Supraclavicular, or Inguinal Adenopathy Neurological: Cranial nerves II-XII grossly intact Psych/Mental Status: Normal Affect, Appropriate Vitals/I&O's: Vital Signs Temp Pulse Resp BP Pulse Ox 97.9 F 79 18 131/73 H 98 07/28/20 08:00 07/28/20 08:00 07/28/20 08:00 07/28/20 08:00 07/28/20 08:00 Oxygen Flow Rate (L/min) 2 Oxygen Delivery Method Room Air Weight: 83 kg Body Mass Index (BMI) 25.9 Finger Stick Blood Glucose 254 Intake and Output for Last 24 Hours 07/26/20 07/27/20 07/28/20 23:59 23:59 23:59 Intake Total 4245.61 / 4248.46 3408.89 / 3408.89 1262.50 / 1262.50 Output Total 950 / 950 900 / 900 Balance 3295.61 / 3298.46 2508.89 / 2508.89 1262.50 / 1262.50 Microbiology Past 72 Hours 07/26/20 17:30 Mucosa - Nose SARS-CoV-2 Antigen (Rapid) - Final Laboratory Results 07/26/20 16:25: Diff Path Review Reviewed 07/27/20 03:15: Diff Path Review Reviewed 07/27/20 12:48: POC Glucose 365 H 07/27/20 16:36: POC Glucose 253 H 07/27/20 22:04: POC Glucose 189 H 07/28/20 05:35: WBC 7.6, RBC 4.06 L, Hgb 13.2, Hct 36.1 L, MCV 88.9, MCH 32.5 H, MCHC 36.6 H, RDW Std Deviation 40.9, RDW Coeff of Maribell 13.0, Plt Count 192, MPV 9.7, Immature Gran % (Auto) 0.400, Neut % (Auto) 51.3, Lymph % (Auto) 39.7, Morrow % (Auto) 7.4, Eos % (Auto) 0.8, Baso % (Auto) 0.4, Absolute Neuts (auto) 3.9, Absolute Lymphs (auto) 3.01, Nucleated RBC % 0 07/28/20 05:35: Sodium 138, Potassium 3.4 L, Chloride 106, Carbon Dioxide 23.0, Anion Gap 9, BUN 14, Creatinine 1.15, Estim Creat Clear Calc 98.30, Est GFR (MDRD) Af Amer 103, Est GFR (MDRD) Non-Af 85, BUN/Creatinine Ratio 12.2, Glucose 346 H, Calcium 8.1 L, Total Bilirubin 0.80, AST 10 L, ALT 15 L, Alkaline Phosphatase 83, Total Protein 5.9 L, Albumin 3.0 L, Globulin 2.9, Albumin/Globulin Ratio 1.0 07/28/20 08:30: POC Glucose 393 H 07/28/20 11:04: POC Glucose 414 H Current Medications Acetaminophen (Acetaminophen 325 Mg Tablet) 650 mg PO Q6H PRN PRN PRN Reason: Pain Score 1-10/Temp > 100.7 F Last Admin: 07/27/20 05:15 Dose: 650 mg Documented by: Dextrose (Dextrose 50%-Water 25 Gm/50 Ml Disp.Syrin) 0 gm IV X1 PRN; Protocol PRN Reason: HYPOGLYCEMIA Enoxaparin Sodium (Enoxaparin 40 Mg/0.4 Ml Syringe) 40 mg SC DAILY [facility] Last Admin: 07/28/20 08:40 Dose: 40 mg Documented by: Hydromorphone HCl (Hydromorphone 0.5 Mg/0.5 Ml Syringe) 0.5 mg IV Q4H PRN PRN PRN Reason: Pain Score 6-10 Last Admin: 07/26/20 21:39 Dose: 0.5 mg Documented by: Sodium Chloride () 250 mls @ 15 mls/hr IV .[id number] PRN PRN Reason: Saline Flush Sodium Chloride () 250 mls @ 15 mls/hr IV .[id number] PRN PRN Reason: Additional IVPB Infusion Sodium Chloride () 1,000 mls @ 125 mls/hr IV .Q8H [facility] Last Infusion: 07/28/20 10:32 Dose: Infused Documented by: Insulin Human Lispro (Insulin Lispro 100 Unit/Ml Insuln.Pen) 0 unit SC [facility]; Protocol Last Admin: 07/28/20 11:08 Dose: 16 u Documented by: Ondansetron HCl (Ondansetron 4 Mg/2 Ml Vial) 4 mg IV Q8H PRN PRN PRN Reason: NAUSEA/VOMITING Sodium Chloride (0.9% Saline Lock 10 Ml Syringe) 10 - 40 ml IV UD PRN PRN Reason: SALINE FLUSH STROKE Vital Signs/Narrative: Vital Signs Temp Pulse Resp BP Pulse Ox 07/28/20 08:00 97.9 F 79 18 131/73 H 98 Medical Necessity - Tobacco Use Smoking Status: Never smoker Tobacco Use: Chew Assessment/Plan All Active Problems DKA (diabetic ketoacidoses) (Acute) HIPOLITO (acute kidney injury) (Acute) Hyperkalemia (Acute) Leukocytosis (Acute) Erythrocytosis (Acute) Thrombocytosis (Acute) Hyponatremia (Acute) Hypochloremia (Acute) Hyperphosphatemia (Acute) Hypermagnesemia (Acute) 1. Acute DKA, resolved 2. HIPOLTIO secondary to dehydration, improved, Creatinine is now 1.15 from 1.94 on admission Continue on gentle IV fluids, repeat blood work in a.m. 3. Hypokalemia, K 3.4, replaced, recheck in am 4. DM, type I, resumed on insulin pump 5. Hypomagnesemia/hypophosphatemia secondary to cellular shift, improved 6. Leukocytosis, reactive, no signs of infection, improved, repeat blood work in a.m. 7. Recent superficial abdominal cellulitis, appears resolved 8. DVT prophylaxis?Lovenox SC; early ambulation recommended Inpatient E&M: 34277 Subs Hosp L2
[2020-07-28 16:01] LABS: Bedside Glucose 85 mg/dL (70-110)
[2020-07-28 22:20] LABS: Bedside Glucose 113 mg/dL (70-110)
[2020-07-29 01:46] VITALS: BP 110/68; PULSE 72; RESP 18; TEMP 36.6; O2SAT 94
[2020-07-29 02:00] VITALS: PULSE 62
[2020-07-29] MEDS: 0.9% Normal Saline 1,000 ML 125 ML IV (06:15)
[2020-07-29 06:18] VITALS: BP 113/66; PULSE 70; RESP 16; TEMP 36.4; O2SAT 96
[2020-07-29 06:55] VITALS: O2SAT 94
[2020-07-29 06:57] VITALS: PULSE 69
[2020-07-29 07:06] LABS: Bedside Glucose 118 mg/dL (70-110)
--- NOTE | 2020-07-29 07:54 | PCM.DC ---
- Discharge Diagnoses Current Active Problems: Current Active and Chronic Problems Diabetes type I (Chronic) DKA (diabetic ketoacidoses) (Acute) HIPOLITO (acute kidney injury) (Acute) Hyperkalemia (Acute) Leukocytosis (Acute) Erythrocytosis (Acute) Thrombocytosis (Acute) Hyponatremia (Acute) Hypochloremia (Acute) Hyperphosphatemia (Acute) Hypermagnesemia (Acute) Reason(s) for Visit for Discharge Instructions: Acute DKA You will use the following diet at home:: Calorie/Carbohydrate Controlled (specify 1200, 1400, etc) Your food should be the consistency of: Regular Your liquids should be the consistency of: Regular/Thin Discharge Activity: Return to Normal Activity Additional Instructions: Continue to keep yourself hydrated. Continue to monitor your blood sugar. Continue to follow-up in the outpatient with your horse trekking guide in [facility]. Would need a repeat blood check in a week when you follow-up with your horse trekking guide. Be careful to rotate your injection sites to prevent insulin pump malfunction. Allergies/Adverse Reactions: Allergies No Known Allergies Allergy (Verified 07/26/20 16:19) Medications to take at Discharge Insulin Basal Pump (Pt's Own) [Pump, Basal] 1 unit CONT INF UD 07/26/20 Primary Care Physician: Jhon Larry III, MD [Primary Care Provider] - Please follow up with your Primary Care Physician in: within 2 weeks Test Results: Test results from this visit will be discussed in further detail at your follow-up appointment, if applicable. Proposed Discharge Date: 07/29/20
--- NOTE | 2020-07-29 07:57 | DS.PCM_ITS ---
Discharge Date and Diagnosis - Problem List Patient Problems: Active and Suspected Problems DKA (diabetic ketoacidoses) (Acute) HIPOLITO (acute kidney injury) (Acute) Hyperkalemia (Acute) Leukocytosis (Acute) Erythrocytosis (Acute) Thrombocytosis (Acute) Hyponatremia (Acute) Hypochloremia (Acute) Hyperphosphatemia (Acute) Hypermagnesemia (Acute) Date of Admission: 07/26/20 Date of Discharge: 07/29/20 - Primary Discharge Diagnosis Acute Problems: Active Problems DKA (diabetic ketoacidoses) (Acute) HIPOLITO (acute kidney injury) (Acute) Hyperkalemia (Acute) Hypokalemia Leukocytosis (Acute) Erythrocytosis (Acute) Thrombocytosis (Acute) Hyponatremia (Acute) Hypochloremia (Acute) Hyperphosphatemia (Acute) Hypermagnesemia (Acute) Recent superficial abdominal cellulitis, resolved - Secondary Discharge Diagnosis Chronic Problems: Chronic Problems Diabetes type I (Chronic) Hospital Course and Treatment Imaging Results: Clinical Impression(s) from Imaging Studies Chest X-Ray 07/26/20 16:55 IMPRESSION: No acute thoracic pathology. Electronically Signed: Jace Regan MD at 17:19 EST Tel , Service support , Operations: None Procedures: None Summary of Care Provided: The patient is a 19 year old M with past medical history of type I DM, follows up with Dr. William Wyatt in [facility]. Patient is on an insulin pump. He presented on the day of admission with nausea, vomiting and abdominal pain that started at 3 AM on the day of admission. Patient has never been in DKA before he had a recent pump site infection in the left abdomen and completed antibiotics for this. He took off his insulin pump. His vitals emergency department showed elevated blood pressure, tachycardia and tachypnea. His oxygen saturation was normal. He had elevated white cell count, hemoglobin, platelets which was secondary to hemoconcentration. He had mild hyponatremia, he was hyperkalemic and had a bicarb level of 8. His anion gap was 27. His BUN was 25, creatinine was 1.94. His admitting blood sugar was 562, and he had moderate acetone level. Patient was admitted to the ICU and managed as acute DKA secondary to insulin pump site malfunction. Patient improved on insulin drip and was transitioned to long-acting insulin pending arrival of his insulin pump. He was restarted on his insulin pump but had to move the sides a couple of times because of high blood sugar readings on his insulin pump. He had electrolyte imbalances that were replaced. Patient was advised to follow-up with his primary statement processor and primary care doctor. He will need repeat blood work within a week and that was explained to him. Patient Problems: Active and Suspected Problems DKA (diabetic ketoacidoses) (Acute) HIPOLITO (acute kidney injury) (Acute) Hyperkalemia (Acute) Leukocytosis (Acute) Erythrocytosis (Acute) Thrombocytosis (Acute) Hyponatremia (Acute) Hypochloremia (Acute) Hyperphosphatemia (Acute) Hypermagnesemia (Acute) Subjective: On the day of discharge, patient was seen and examined. Denied any new complaints. His blood sugars are better controlled today. Objective: Physical exam: General: Alert, oriented x3, cooperative, well developed, well nourished HEENT: Atraumatic, PERRLA, EOMI, Normocephalic, EAC Clear Oral: No mucosa Neck: Supple, No JVD Lungs: Clear to auscultation, Normal air movement, No rhonchi, No wheeze, No rales Cardiovascular: Regular Rhythm, Normal S1, Normal S2, No murmurs, No Ectopic Activity, No rub noted, No Gallop, Tachycardic Abdomen: Bowel sounds present, soft, non-tender, non-distended, left abdominal insulin pump site no significant erythema noted Extremities: No edema Skin: No rashes, No breakdown Musculoskeletal: No Tenderness to Palpation of Joints or Extremities, No Muscle Wasting Lymphatic: No Cervical, Supraclavicular, or Inguinal Adenopathy Neurological: Cranial nerves II-XII grossly intact Psych/Mental Status: Normal Affect, Appropriate - Physical Exam Vitals/I&O's: Vital Signs Temp Pulse Resp BP Pulse Ox 97.5 F L 69 16 113/66 94 07/29/20 06:18 07/29/20 06:57 07/29/20 06:18 07/29/20 06:18 07/29/20 06:55 Oxygen Flow Rate (L/min) 2 Oxygen Delivery Method Room Air Weight: 86.9 kg Body Mass Index (BMI) 25.9 Finger Stick Blood Glucose 254 Intake and Output for Last 24 Hours 07/27/20 07/28/20 07/29/20 23:59 23:59 23:59 Intake Total 3408.89 / 3408.89 3075.00 / 5275.00 5193.75 / 5193.75 Output Total 900 / 900 Balance 2508.89 / 2508.89 3075.00 / 5275.00 5193.75 / 5193.75 Microbiology Past 72 Hours 07/26/20 17:30 Mucosa - Nose SARS-CoV-2 Antigen (Rapid) - Final Laboratory Results 07/28/20 08:30: POC Glucose 393 H 07/28/20 11:04: POC Glucose 414 H 07/28/20 15:53: POC Glucose 85 07/28/20 22:13: POC Glucose 113 H 07/29/20 06:57: POC Glucose 118 H Current Medications Acetaminophen (Acetaminophen 325 Mg Tablet) 650 mg PO Q6H PRN PRN PRN Reason: Pain Score 1-10/Temp > 100.7 F Last Admin: 07/27/20 05:15 Dose: 650 mg Documented by: Dextrose (Dextrose 50%-Water 25 Gm/50 Ml Disp.Syrin) 0 gm IV X1 PRN; Protocol PRN Reason: HYPOGLYCEMIA Enoxaparin Sodium (Enoxaparin 40 Mg/0.4 Ml Syringe) 40 mg SC DAILY [facility] Last Admin: 07/28/20 08:40 Dose: 40 mg Documented by: Hydromorphone HCl (Hydromorphone 0.5 Mg/0.5 Ml Syringe) 0.5 mg IV Q4H PRN PRN PRN Reason: Pain Score 6-10 Last Admin: 07/26/20 21:39 Dose: 0.5 mg Documented by: Sodium Chloride () 250 mls @ 15 mls/hr IV .[id number] PRN PRN Reason: Saline Flush Sodium Chloride () 250 mls @ 15 mls/hr IV .[id number] PRN PRN Reason: Additional IVPB Infusion Sodium Chloride () 1,000 mls @ 125 mls/hr IV .Q8H [facility] Last Admin: 07/29/20 06:15 Dose: 125 mls/hr Documented by: Insulin Human Lispro (Insulin Lispro 100 Unit/Ml Insuln.Pen) 0 unit SC [facility]; Protocol Last Admin: 07/29/20 07:03 Dose: Not Given Documented by: Ondansetron HCl (Ondansetron 4 Mg/2 Ml Vial) 4 mg IV Q8H PRN PRN PRN Reason: NAUSEA/VOMITING Sodium Chloride (0.9% Saline Lock 10 Ml Syringe) 10 - 40 ml IV UD PRN PRN Reason: SALINE FLUSH Discharge Diet: 1800 Calorie Control Diet Discharge Activity: Return to Normal Activity Home Medications: Medications to take at Discharge Insulin Basal Pump (Pt's Own) [Pump, Basal] 1 unit CONT INF UD 07/26/20 Primary Care Physician: Jhon Larry III, MD [Primary Care Provider] - Please follow up with your Primary Care Physician in: within 2 weeks Disposition: Home Minutes spent on discharge:: 40 Patient Condition:: Stable Medical Necessity - Tobacco Use Smoking Status: Never smoker Tobacco Use: Chew Meaningful Use Info Meaningful Use Diagnoses (Choose all that apply): None applicable Inpatient E&M: 41105 Disch Hosp
[2020-07-29 08:53] VITALS: BP 142/77; PULSE 71; RESP 14; TEMP 36.3; O2SAT 99
[2020-07-29 09:28] LABS: AST(SGOT) 15 U/L (15-37); Alanine Aminotransfer ALT/SGPT 22 U/L (16-61); Albumin, Serum 2.9 g/dL (3.2-5.0); Alkaline Phosphatase 69 U/L (45-117); Anion Gap 4 (5-15); BUN 12 mg/dL (7-18); BUN/Creat Ratio 14.3 RATIO (10-20); Calcium,Total 8.4 mg/dL (8.5-10.1); Chloride 111 mmol/L (98-107); Creatinine, Serum 0.84 mg/dL (0.70-1.30); EST Glomerular Filtration Rate 122 mL/min (>60); Est Glom Filt Rate - Afr Amer 148 mL/min (>60); Estimated Creatinine Clearance 134.58 ml/min; Globulin 2.9 g/dL (2.2-4.2); Glucose 115 mg/dL (74-106); Potassium 3.2 mmol/L (3.5-5.1); Protein, Total 5.8 g/dL (6.4-8.2); Sodium Level 142 mmol/L (136-145)
--- NOTE | 2020-07-29 10:51 | PHA.DC.MR ---
Pharmacy Service has performed discharge medication reconciliation for this patient. The patient's discharge medication list was reviewed for discrepancies and discrepancies were resolved. Home Medications Insulin Basal Pump (Pt's Own) [Pump, Basal] 1 unit CONT INF UD 07/26/20 Potassium Chloride [Klor-Con M20] 20 meq PO DAILY 5 Days #5 tab.er.prt 07/29/20
== END 2020-07-29 10:43 | disposition home or self-care (01) | DRG 638 ==
LOC: ED 17:42 → ICU 18:16 → PCU 07-27 13:37
PROVIDERS: Admitting Provider Internal Medicine; Emergency Provider Emergency Medicine; PCP Family Medicine; Visit Provider Internal Medicine
DX: E10.10 Type 1 diabetes mellitus with ketoacidosis without coma (principal); N17.9 Acute kidney failure, unspecified; E87.1 Hypo-osmolality and hyponatremia; E87.5 Hyperkalemia; E87.6 Hypokalemia; D72.829 Elevated white blood cell count, unspecified; D75.1 Secondary polycythemia; E87.8 Other disorders of electrolyte and fluid balance, not elsewhere classified; E83.39 Other disorders of phosphorus metabolism; E83.41 Hypermagnesemia; Z79.4 Long term (current) use of insulin; Z96.41 Presence of insulin pump (external) (internal); E86.0 Dehydration; E86.1 Hypovolemia; E83.42 Hypomagnesemia
CPT/HCPCS: 36415; 71045; 80048; 80053; 82009; 82962; 83036; 83735; 84100; 84439; 84443; 84481; 85025; 87426; 93005; 97802; 99251; 99285; J7030; A4216; G0463; J7799

== ENCOUNTER 2021-12-23 08:11 | Emergency (ER) | payer OTHER, SELFPAY ==
[2021-12-23 08:12] VITALS: BP 172/68; PULSE 121; RESP 16; TEMP 36.6; O2SAT 99; BMI 28.0
[2021-12-23] MEDS: Diphth,Pertuss(Acell),Tet Vac 0.5 ML Vial IM (08:34)
[2021-12-23 08:37] VITALS: BP 172/68; PULSE 121; RESP 16; TEMP 36.6; O2SAT 99
--- NOTE | 2021-12-23 08:37 | EDS_ITS ---
HPI History of Present Illness Chief Complaint: Wound Check Informant: patient Onset/Context/Timing Onset: Today Context: Sudden Onset Timing: Continuous Quality of Pain: - (sore) Location: plantar R foot Current Severity: Mild Maximum Severity: Moderate Worsened by: walking, palpation Relieved by: leaving alone Associated Symptoms Associated Symptoms: Negative for Parasthesia, Weakness or Loss of Funtion Narrative Narrative: Patient accidentally stepped on a nail today just prior to arrival. Feeling well otherwise. Other than discomfort at the small site of the puncture wound no other symptoms or numbness tingling. Tetanus Immunization: >10 years [facility] Medical History (Updated 12/23/21 @ 08:[address] William Fowler MD) Diabetes Diabetes type I Erythrocytosis Thrombocytosis Home Medications Insulin Basal Pump (Pt's Own) [Pump, Basal] 1 unit continuous IV infusion UD diabetes 07/26/20 [History Last Taken Unknown] cephalexin 500 mg capsule 500 mg PO TID 5 days #15 CAPSULES 12/23/21 [Rx Last Taken Unknown] Allergy/AdvReac Type Severity Reaction Status Date / Time No Known Allergies Allergy Verified 12/23/21 08:14 Social History Smoking Status: Never smoker ROS ROS ED Constitutional Constitutional ED: Denies chills or fever(s) Musculoskeletal Musculoskeletal: Reports extremity pain; Denies neck pain Integumentary Reports wounds; Denies Abrasions or rash Neurologic Neurologic: Denies paresthesias or weakness EXAM Physical Exam Const Vital Signs: 12/23/21 08:12 Temperature 97.9 F Temperature Source Temporal Pulse Rate 121 H Respiratory Rate 16 Blood Pressure 172/68 H Blood Pressure Mean 102 Pulse Ox 99 Oxygen Delivery Method Room Air Positive well nourished and well developed General Appearance ED: well developed and NAD Neck full ROM and supple Back/Spine normal ROM and normal to inspection Extremity Extremity Narrative: Small puncture wound plantar aspect of the arch of the right foot, no bleeding, but there is some dried blood there as it obviously broke the skin. No foreign material. Appears relatively superficial but difficult to tell. Mildly tender just at the site. No signs of drainage. No cellulitis. Neuro oriented x3, no focal motor deficits and no sensory deficits noted Sensorium / Orientation: alert Psych mental status grossly normal and thought process normal Skin Skin Narrative: Small single puncture wound plantar right arch of the foot. No dorsal bony tenderness. See above. Rashes: no rashes MDM MDM MDM Narrative Medical decision making narrative: Difficult to tell the depth of the wound but it does appear to be relatively superficial if I had to guess. Obviously broke the skin, so we will place him on prophylactic antibiotics and update his tetanus, wound was cleansed and dressed with bacitracin here advised to check it daily in place topical antibiotics with each dressing change. Discharge Plan Triage Chief Complaint: Wound Check ED Provider: William Fowler Dx/Rx/DC Orders Clinical Impression: Puncture wound of foot, right, [id number] (DTP) vaccination Instructions: ED Puncture Wound (Foot) Prescriptions: New cephalexin [cephalexin] 500 mg capsule 500 mg PO TID 5 Days Qty: 15 0RF No Action Insulin Basal Pump (Pt's Own) [Pump, Basal] 1 UNIT Pump 1 unit CONT INF UD Referrals: Doctor,Your [STAFF PHYSICIAN] - As Needed Disposition Disposition: Home, Self Care
--- NOTE | 2021-12-23 09:13 | ED.RN ---
PT LEFT PRIOR TO D/C INSTRUCTIONS. THIS RN CALLED THE PT TO INFORM HIM THAT [facility] PRES[facility]. VOICEMAIL LEFT
== END 2021-12-23 09:00 | disposition home or self-care (01) ==
LOC: ED 08:50
PROVIDERS: Emergency Provider Emergency Medicine; PCP Family Medicine; Visit Provider Emergency Medicine
DX: S91.331A Puncture wound without foreign body, right foot, initial encounter (principal); Z23 Encounter for immunization; X58.XXXA Exposure to other specified factors, initial encounter
CPT/HCPCS: 90471; 90715; 99282

== ENCOUNTER → 2023-07-06 | Outpatient (CLI) | payer OTHER, SELFPAY ==
--- OUTSIDE RECORDS SUMMARY | 2023-07-06 08:55 | XMS RPT_ITS | CCD ---
Author Name Unknown Address [address] [place] [address] Organization [facility] Care Team Providers Care Business Development Executive Name Role Phone RHODA BOYD Attending Unavailable CEBUL III, ROSALIO Monique Referring Unavailable CEBUL III, ROSALIO A Primary Care Unavailable CAROLINE SILVA Attending Unavailable CEBUL III, ROSALIO Monique Referring Unavailable CEBUL III, ROSALIO A Primary Care Unavailable Results Test Name Value Interpretation Reference Range Facil ity Encounters Encounter Date Encounter Type Care Provider Facility Start: 04-04-2023 End: 04-04-2023 ambulatory RHODA BOYD [facility] Start: 06-23-2022 End: 06-23-2022 ambulatory CAROLINE SILVA [facility] Start: 06-08-2022 End: 06-08-2022 ambulatory Facility:[facility] Payers Date Payer Category Payer Unknown [id number] 2000 Unknown [id number] 2000 Unknown [id number] Unknown [id number] Clinical Note 08-30-2021 Note Date & Type Note Facility 08-30-2021 Note Patient Outreach (FA MPWS) LUIS ANGEL STEPHENS ([id number]) 2000 M Date Time Provider Department 08/30/21 SRINIVAS BROWN During your visit today, we recorded the following information about you: Srinivas Brown Ma 09/03/2021 1:28 PM Signed POPULATION HEALTH NAVIGATION OUTREACH Action/FYI Pt sent letter from office to Establish Care due to previous PCP retiring. Notified pt to contact office to establish with new PCP/Team. Pt identified by name and : YES, via letter Outreach Outcome/Action Letter mailed Reason for Outreach Care Gap or Scheduling/Wellness visits Payer: Payor: [facility] / Plan: [facility] UM CHOICE PLUS / Product Type: HMO / Care Gap Reviewed:: Annual Wellness visit Establish PCP Reminder: Reminder note to check Health Maintenance for items below Health Maintenance items due: COVID-19 VACCINE(1) Never done HPV VACCINE(1 - Male 2-dose series) Never done ONE PNEUMOVAX PRIOR TO AGE 65 Never done HEPATITIS C SCREENING Never done HIV SCREENING Never done DILATED RETINAL EXAM due on 01/09/2019 DEPRESSION SCREENING due on 06/27/2019 HBA1C due on 07/17/2020 URINE ALBUMIN:CREATININE RATIO due on 12/23/2020 DIABETIC FOOT EXAM due on 12/23/2020 LDL CHOLESTEROL due on 02/10/2021 INFLUENZA(1) due on 02/24/2021 ANNUAL PCP TEAM CHRONIC DISEASE VISIT due on 07/14/2021 Message Sent to Practice: Yes Navigation Signature: Srinivas Brown Ma August 30, 2021 11:52 AM Allergies As of Date: 08/30/2021 (No Known Allergies) Date Reviewed: 12/24/2019 Reviewed by: Aicha ([facility]) ZAC Hernandez - Fully Assessed Reason for Visit: PHMA/Care Gap Outreach [0544] Prescriptions as of 09/03/2021 - insulin glargine (BASAGLAR KWIKPEN U-100 INSULIN) 100 unit/mL (3 mL) inpn Inject 28 Units subcutaneously daily at bedtime. - BD ULTRA-FINE SHAUN PEN NEEDLE 32 gauge x 32 ndle Inject 1 Each subcutaneously as needed. - lancets (ONE TOUCH DELICA) 33 gauge misc Use as directed checking 6 times daily. - blood sugar diagnostic (ONETOUCH ULTRA TEST) test strip Check blood sugar 6 times daily as directed - glucagon, human recombinant, (GLUCAGON EMERGENCY KIT, HUMAN,) 1 mg injection Inject 1 mg intramuscularly. - flash glucose scanning reader (FREESTYLE SHIRLEY READER) misc Use to check blood glucose 5 times daiy - flash glucose sensor (FREESTYLE SHIRLEY SENSOR) kit Use to check blood glucose - ONETOUCH ULTRAMINI monitoring kit - Blood Glucose Control, Normal (OT ULTRA/FASTTRACK CONTROL) soln Use daily as directed to check meter - alcohol swabs (ALCOHOL PADS) padm Use as directed. - Blood-Glucose Meter (ONETOUCH ULTRAMINI) monitoring kit Use as directed. - insulin aspart (NOVOLOG) 100 unit/mL soln variable doses based on sliding scale Meds Comments as of 08/03/2012: No daily medications Problem List As Of Date 08/30/2021 Noted Resolved Molluscum contagiosum [B08.1] 05/08/2006 01/16/2014 Achilles tendinitis [M76.60] 08/05/2009 01/16/2014 Heart murmur [R01.1] 01/15/2013 01/16/2014 Acne [L70.9] 01/16/2014 01/10/2019 Ingrowing nail, left great toe [L60.0] 07/10/2015 01/19/2016 Type 1 diabetes mellitus without complication (*01/19/2016 Positive autoantibody screening for celiac dise*01/02/2018 Pain in right elbow [M25.521] 01/10/2018 01/10/2019 Chronic right shoulder pain [M25.511, G89.29] 01/10/2018 01/10/2019 Letter Text Encounter Status:Closed by THELMA COMER MA on 09/03/21 [facility] Progress note 08-30-2021 Note Date & Type Note Facility 08-30-2021 Note HNO ID: [id number] Author: Srinivas Brown Ma Service: ? Author Type: ? Type: Progress Notes Filed: 09/03/2021 1:28 PM Note Text: POPULATION HEALTH NAVIGATION OUTREACH Action/FYI Pt sent letter from office to Establish Care due to previous PCP retiring. Notified pt to contact office to establish with new PCP/Team. Pt identified by name and : YES, via letter Outreach Outcome/Action Letter mailed Reason for Outreach Care Gap or Scheduling/Wellness visits Payer: Payor: [facility] / Plan: [facility] UMR CHOICE PLUS / Product Type: HMO / Care Gap Reviewed:: Annual Wellness visit Establish PCP Reminder: Reminder note to check Health Maintenance for items below Health Maintenance items due: COVID-19 VACCINE(1) Never done HPV VACCINE(1 - Male 2-dose series) Never done ONE PNEUMOVAX PRIOR TO AGE 65 Never done HEPATITIS C SCREENING Never done HIV SCREENING Never done DILATED RETINAL EXAM due on 01/09/2019 DEPRESSION SCREENING due on 06/27/2019 HBA1C due on 07/17/2020 URINE ALBUMIN:CREATININE RATIO due on 12/23/2020 DIABETIC FOOT EXAM due on 12/23/2020 LDL CHOLESTEROL due on 02/10/2021 INFLUENZA(1) due on 02/24/2021 ANNUAL PCP TEAM CHRONIC DISEASE VISIT due on 07/14/2021 Message Sent to Practice: Yes Navigation Signature: Srinivas Brown Ma August 30, 2021 11:52 AM [facility] Clinical Note 06-21-2021 Note Date & Type Note Facility 06-21-2021 Note Patient Outreach (NE TNAV) LUIS ANGEL STEPHENS ([id number]) 2000 M Date Time Provider Department 06/21/21 ORLY HILL During your visit today, we recorded the following information about you: Orly Hill Population Health Navigator 06/21/2021 9:18 AM Signed POPULATION HEALTH NAVIGATION OUTREACH Action/ I spoke with patient's mom and she states she wanted appointment with pcp there wasn't any to be found in August or September she will look on my chart No care everywhere Contact made with patient or family member? YES Pt identified by name and : YES Outreach Outcome/Action Spoke to patient or caregiver: PCP confirmed / updated Patient will return the call or ask for return call Reason for Outreach Attribution: Provider Off-boarding Payer: Payor: [facility] / Plan: [facility] UMR CHOICE PLUS / Product Type: HMO / Care Gap Reviewed:: Reminder: Reminder note to check Health Maintenance for items below Health Maintenance items due: COVID-19 VACCINE(1) Never done HPV VACCINE(1 - Male 2-dose series) Never done ONE PNEUMOVAX PRIOR TO AGE 65 Never done HEPATITIS C SCREENING Never done HIV SCREENING Never done DILATED RETINAL EXAM due on 01/09/2019 DEPRESSION SCREENING due on 06/27/2019 HBA1C due on 07/17/2020 URINE ALBUMIN:CREATININE RATIO due on 12/23/2020 DIABETIC FOOT EXAM due on 12/23/2020 LDL CHOLESTEROL due on 02/10/2021 INFLUENZA(1) due on 02/24/2021 Advanced Directives Completed: Have you ever planned for future healthcare decisions with a power of insurance defense attorney, living will, or advance directives? No. Please bring a copy to your next appointment or email to [email or web address] Referrals: N/A Message Sent to Practice: NO Navigation Signature: Orly Hill Population Health Navigator June 21, 2021 9:17 AM Allergies As of Date: 06/21/2021 (No Known Allergies) Date Reviewed: 12/24/2019 Reviewed by: Aicha ([facility]) ZAC Hernandez - Fully Assessed Reason for Visit: Population Health Navigation Outreach [3910] Cmt: Offboarding Prescriptions as of 06/21/2021 - insulin glargine (BASAGLAR KWIKPEN U-100 INSULIN) 100 unit/mL (3 mL) inpn Inject 28 Units subcutaneously daily at bedtime. - BD ULTRA-FINE SHAUN PEN NEEDLE 32 gauge x /32 ndle Inject 1 Each subcutaneously as needed. - lancets (ONE TOUCH DELICA) 33 gauge misc Use as directed checking 6 times daily. - blood sugar diagnostic (ONETOUCH ULTRA TEST) test strip Check blood sugar 6 times daily as directed - glucagon, human recombinant, (GLUCAGON EMERGENCY KIT, HUMAN,) 1 mg injection Inject 1 mg intramuscularly. - flash glucose scanning reader (FREESTYLE SHIRLEY READER) misc Use to check blood glucose 5 times daiy - flash glucose sensor (FREESTYLE SHIRLEY SENSOR) kit Use to check blood glucose - ONETOUCH ULTRAMINI monitoring kit - Blood Glucose Control, Normal (OT ULTRA/FASTTRACK CONTROL) soln Use daily as directed to check meter - alcohol swabs (ALCOHOL PADS) padm Use as directed. - Blood-Glucose Meter (ONETOUCH ULTRAMINI) monitoring kit Use as directed. - insulin aspart (NOVOLOG) 100 unit/mL soln variable doses based on sliding scale Meds Comments as of 08/03/2012: No daily medications Problem List As Of Date 06/21/2021 Noted Resolved Molluscum contagiosum [B08.1] 05/08/2006 01/16/2014 Achilles tendinitis [M76.60] 08/05/2009 01/16/2014 Heart murmur [R01.1] 01/15/2013 01/16/2014 Acne [L70.9] 01/16/2014 01/10/2019 Ingrowing nail, left great toe [L60.0] 07/10/2015 01/19/2016 Type 1 diabetes mellitus without complication (*01/19/2016 Positive autoantibody screening for celiac dise*01/02/2018 Pain in right elbow [M25.521] 01/10/2018 01/10/2019 Chronic right shoulder pain [M25.511, G89.29] 01/10/2018 01/10/2019 Encounter Status:Closed by SERGIO POPULATION HEALTH NAVIGATORORLY on 06/21/21 [facility] Progress note 06-21-2021 Note Date & Type Note Facility 06-21-2021 Note HNO ID: [id number] Author: Orly Hlil Population Health Navigator Service: ? Author Type: ? Type: Progress Notes Filed: 06/21/2021 9:18 AM Note Text: POPULATION HEALTH NAVIGATION OUTREACH Action/FYI I spoke with patient's mom and she states she wanted appointment with pcp there wasn't any to be found in August or September she will look on my chart No care everywhere Contact made with patient or family member? YES Pt identified by name and : YES Outreach Outcome/Action Spoke to patient or caregiver: PCP confirmed / updated Patient will return the call or ask for return call Reason for Outreach Attribution: Provider Off-boarding Payer: Payor: [facility] / Plan: [facility] UM CHOICE PLUS / Product Type: HMO / Care Gap Reviewed:: Reminder: Reminder note to check Health Maintenance for items below Health Maintenance items due: COVID-19 VACCINE(1) Never done HPV VACCINE(1 - Male 2-dose series) Never done ONE PNEUMOVAX PRIOR TO AGE 65 Never done HEPATITIS C SCREENING Never done HIV SCREENING Never done DILATED RETINAL EXAM due on 01/09/2019 DEPRESSION SCREENING due on 06/27/2019 HBA1C due on 07/17/2020 URINE ALBUMIN:CREATININE RATIO due on 12/23/2020 DIABETIC FOOT EXAM due on 12/23/2020 LDL CHOLESTEROL due on 02/10/2021 INFLUENZA(1) due on 02/24/2021 Advanced Directives Completed: Have you ever planned for future healthcare decisions with a power of insurance defense attorney, living will, or advance directives? No. Please bring a copy to your next appointment or email to Referrals: N/A Message Sent to Practice: NO Navigation Signature: Orly Hill Population Health Navigator June 21, 2021 9:17 AM [facility] Summary Purpose Family History No Family History Records FoundNo Family History Records FoundNo Family History Records Found Advance Directives No Advanced Directives Records FoundNo Advanced Directives Records FoundNo Advanced Directives Records Found Additional Source Comments (unrecognized sect ion and content) No Status Records FoundNo Status Records FoundNo Status Records Found INFORMATION SOURCE (unrecogn ized section and content) DATE CREATED AUTHOR AUTHOR'S ORGANIZ ATION 06/15/2022 [facility] DATE CREATED AUTHOR AUTHOR'S ORGANIZ ATION 04/09/2023 [facility] FOR RECORDS PERTAINING TO PATIENTS WHO ARE OR HAVE BEEN ENROLLED IN A CHEMICAL DEPENDENCY/SUBSTANCEABUSE PROGRAM, SOME INFORMATION MAY BE OMITTED. This clinical summary was aggregated from multiple sources. Caution should be exercised in using it in the provision of clinical care. This summary normalizes information from multiple sources, and as a consequence, information in this document may materially change the coding, format and clinical context of patient data. In addition, data may be omitted in some cases. CLINICAL DECISIONS SHOULD BE BASED ON THE PRIMARY CLINICAL RECORDS. [employer] provides no warranty or guarantee of the accuracy or completeness of information in this document.
[2023-07-06 10:20] LABS: ALB/GLOB Ratio 1.1 RATIO (0.9-2.4); AST(SGOT) 8 U/L (15-37); Alanine Aminotransfer ALT/SGPT 22 U/L (16-61); Albumin, Serum 3.7 g/dL (3.2-5.0); Alkaline Phosphatase 102 U/L (45-117); Anion Gap 14 (5-15); BUN 20 mg/dL (7-18); Calcium,Total 8.9 mg/dL (8.5-10.1); Chloride 98 mmol/L (98-107); Cholesterol 196 mg/dL (200); Creatinine, Serum 1.11 mg/dL (0.70-1.30); EST Glomerular Filtration Rate 86 mL/min (>60); Est Glom Filt Rate - Afr Amer 104 mL/min (>60); Globulin 3.3 g/dL (2.2-4.2); Glucose 441 mg/dL (74-106); High Density Lipoprotein 65 mg/dL; Potassium 4.6 mmol/L (3.5-5.1); Sodium Level 131 mmol/L (136-145); Thyroid Stim Hormone (TSH) 0.72 uIU/mL (0.358-3.74); Triglycerides 194 mg/dL; Very Low Density Lipoprotein 39 mg/dL (5-40)
[2023-07-06 10:59] LABS: Vitamin D,25 Hydroxy 25.8 ng/mL
[2023-07-06 11:01] LABS: Microalbumin,Random Urine < 5.0 mg/L (NO RANGE EST.)
== END | disposition home or self-care (01) ==
PROVIDERS: PCP Family Medicine; Visit Provider Nurse Practitioner Family
DX: E10.9 Type 1 diabetes mellitus without complications (principal)
CPT/HCPCS: 36415; 80053; 80061; 82043; 82306; 82570; 84443

== ENCOUNTER 2023-07-21 11:02 | Inpatient (IN) | payer OTHER, SELFPAY ==
[2023-07-21] VITALS (15 sets, daily range): BP systolic 102–131; BP diastolic 57–95; PULSE 83–143; RESP 8–18; TEMP 36.2–36.8; O2SAT 96–100; BMI 26.1; BMI 29.3
--- NOTE | 2023-07-21 12:33 | EDS_ITS ---
HPI History of Present Illness Chief Complaint: General Illness Informant: patient Onset/Context/Timing Onset: Weeks (1) Context: Gradual Onset Timing: Continuous Quality: Dizzy, lightheaded Location: Generalized Worsened by: Nothing Relieved by: Ice packs Narrative Narrative: Patient is a 22-year-old diabetic who presents with abnormal blood sugars that have been constant for the past week. Patient states he feels dizzy and lightheaded. Patient states he feels better after he is able to drink some ice water. Patient states ice packs have also been helping. Patient states that he woke up today and saw that his insulin pump was blocked. Patient removed his in sulin pump. Patient denies any fevers or chills. Patient admits to some nausea and vomiting. Patient states he has been unable to keep anything down today. Patient admits to a sore throat from the vomiting. [facility] Medical History Diabetes Diabetes type I Erythrocytosis Thrombocytosis Home Medications Insulin Basal Pump (Pt's Own) [Pump, Basal] 1 unit continuous IV infusion UD diabetes 07/26/20 [History Last Taken Unknown] insulin aspart U-100 100 unit/mL subcutaneous solution (Novolog U-100 Insulin aspart) 07/21/23 [History Last Taken Unknown] insulin glargine 100 unit/mL (3 mL) subcutaneous pen (Lantus Solostar U-100 Insulin) 12 unit subcut DAILY 07/21/23 [History Last Taken Unknown] Allergy/AdvReac Type Severity Reaction Status Date / Time No Known Allergies Allergy Verified 07/21/23 11:03 Family History Father Hypertension Grandmother Kidney disease no surgical history Social History Smoking Status: Never smoker alcohol intake: never substance use type: does not use frequency: 3-4 times per week ROS ROS ED Constitutional Constitutional ED: Denies chills or fever(s) Eyes Eyes: Denies blurry vision or change in vision ENT ENT ED: Reports sore throat; Denies rhinorrhea Cardiovascular Cardiovascular: Denies chest pain or palpitations Respiratory/Chest Respiratory/Chest: Denies cough or dyspnea Gastrointestinal Gastrointestinal: Reports nausea and vomiting Genitourinary Genitourinary ED: Denies dysuria or hematuria Musculoskeletal Musculoskeletal: Denies back pain or neck pain Integumentary Denies abscess or rash Neurologic Neurologic: Denies headache(s) or weakness Endocrine Endocrinology: Reports polydipsia Allergic/Immunologic Allergic/Immunologic ED: Denies mouth swelling or urticaria EXAM Physical Exam Const Vital Signs: 07/21/23 11:03 07/21/23 11:02 Temperature 98.2 F Temperature Source Temporal Pulse Rate 143 H Respiratory Rate 18 Respiratory Effort Normal Non-Labored Respiratory Pattern Normal Blood Pressure 102/86 H Blood Pressure Mean 91 Pulse Ox 100 Oxygen Delivery Method Room Air Positive well nourished and well developed General Appearance ED: well developed and NAD HEENT Reports moist mucous membranes Neck supple and no JVD Resp normal respiratory effort and clear to auscultation bilaterally Cardio regular rate and regular rhythm GI non-tender and non-distended Palpation: soft Extremity normal to inspection General Extremety ED: Negative for edema or tenderness General Extremity: Negative for edema Neuro oriented x3, CN's II-XII intact bilaterally and no sensory deficits noted Sensorium / Orientation: alert Motor Exam: strength 5/5 throughout Psych mental status grossly normal MDM MDM MDM Narrative Medical decision making narrative: Differential diagnosis includes DKA, hyperglycemia, gastroenteritis, electrolyte abnormality, and urinary tract infection. CBC will be obtained to assess for leukocytosis and anemia. Basic metabolic profile will be obtained to assess for hyperglycemia, electrolyte abnormality, and renal function. Urinalysis will be obtained to assess for urinary tract infection, glucosuria, and ketonuria. Serum ketones will be obtained to assess for ketonemia. Lab Data Attestation: I reviewed the patient's lab results. Lab results narrative: CBC was reviewed. Hemoglobin was slightly elevated at 18.8. The remainder was within normal limits. Basic metabolic profile was reviewed. Glucose was slightly elevated at 122. CO2 was low at 14 and anion gap was elevated at 16. Sodium was slightly low at 135. BUN was 19 and creatinine is 1.61. Serum ketones were reviewed and were large. Management Discussion w/another healthcare provider: Hospitalist Treatment and Re-Evaluation :: Patient was given IV fluids and Zofran. Patient was started on insulin drip. Patient will also be started on glucose IV drip. Case was discussed with the hospitalist. He will admit the patient to ICU. Patient understands and is agreeable with the plan. All questions were answered. Critical Care Time Critical Care Time: Yes Critical care time (excluding procedures): 30-74 minutes (32), Including time spent:, Discussing w/Patient &/or Family/Clinical Associate, Discussing w/Consultants, Arranging Admission or Transfer and Performing Direct Patient Care at Bedside Discharge Plan Triage Chief Complaint: General Illness Other Complaint: Hyperglycemia ED Provider: Davian Tate Dx/Rx/DC Orders Clinical Impression: HIPOLITO (acute kidney injury), DKA (diabetic ketoacidoses), Diabetes type I Prescriptions: No Action Insulin Basal Pump (Pt's Own) [Pump, Basal] 1 UNIT Pump 1 unit CONT INF UD Primary Care Provider: Victor Manuel Ayers Referrals: Victor Manuel Ayers MD [Primary Care Provider] - Disposition Disposition: Acute Care Hospital [facility]
[2023-07-21 12:35] LABS: Bedside Glucose 86 mg/dL (74-106)
[2023-07-21] MEDS: 0.9% Normal Saline (1000mL) 1,000 ML 999 ML IV (12:39)
[2023-07-21] MEDS: Ondansetron 4 MG/2 ML Vial IV (12:40)
[2023-07-21 12:58] LABS: Absolute Lymphocyte Count 2.96 X10^3/uL (0.83-4.51); Absolute Neutrophil Count 4.9 X10^3/uL (2.0-7.7); Basophil# 0.02 X10^3/uL; Basophil% 0.2 % (0-1); Lymphocyte # 2.96 X10^3/ul (0.83-4.51); Lymphocyte % 35.3 % (19-41); Mean Corp Hgb Conc 36.2 g/dL (32-36); Mean Corpuscular Hgb 30.2 pg (27.0-32.0); Mean Corpuscular Volume 83.6 fL (80-94); Mean Platelet Vol. 9.8 fl (6.2-12.0); Monocyte# 0.46 X10^3/uL; Monocyte% 5.5 % (0-10); NRBC Flagged by Analyzer 0 % (0-5); Neutrophil % 58.5 % (47-70); Platelet Count 326 K/mm3 (150-450); RBC Distribution Width CV 11.7 % (11.6-14.6); RBC Distribution Width SD 34.8 fl (35.1-43.9); Red Blood Count 6.22 M/mm3 (4.6-6.2); White Blood Count 8.4 K/mm3 (4.4-11.0)
[2023-07-21 13:01] LABS: Hemoglobin 18.8 g/dL (13.0-16.5)
--- OUTSIDE RECORDS SUMMARY | 2023-07-21 13:01 | XMS RPT_ITS | CCD ---
Author Name Unknown Address [address] [place] [address] Organization [facility] Care Team Providers Care Duck Operator Name Role Phone RHODA BOYD Attending Unavailable CEBUL III, ROSALIO Monique Referring Unavailable CEBUL III, ROSALIO A Primary Care Unavailable CAROLINE SILVA Attending Unavailable CEBUL III, ROSALIO Monique Referring Unavailable CEBUL III, ROSALIO A Primary Care Unavailable Results Test Name Value Interpretation Reference Range Facil ity Encounters Encounter Date Encounter Type Care Provider Facility Start: 04-04-2023 End: 04-04-2023 ambulatory RHODA BOYD [facility] Start: 06-23-2022 End: 06-23-2022 ambulatory CAROLINE SILVA [facility] Start: 06-08-2022 End: 06-08-2022 ambulatory Facility:[facility] Payers Date Payer Category Payer Unknown [id number] 2000 Unknown [id number] 2000 Unknown [id number]. [id number] Unknown [id number] Clinical Note 08-30-2021 Note Date & Type Note Facility 08-30-2021 Note Patient Outreach (FA MPWS) LUIS ANGEL STEPHENS ([id number]) 2000 M Date Time Provider Department 08/30/21 [...] Care Gap or Scheduling/Wellness visits Payer: Payor: [facility] / Plan: [facility] UM CHOICE PLUS / Product Type: [...] Allergies) Date Reviewed: 12/24/2019 Reviewed by: Aicha ([facility]) ZAC Hernandez - Fully Assessed Reason for Visit: PHMA/Care Gap Outreach [[id number]] Prescriptions as of 09/03/2021 - insulin glargine [...] Status:Closed by THELMA COMER MA on 09/03/21 [facility] Progress note 08-30-2021 Note Date & Type Note Facility 08-30-2021 Note HNO ID: [id number] Author: Srinivas Brown Ma Service: ? Author [...] Care Gap or Scheduling/Wellness visits Payer: Payor: [facility] / Plan: [facility] UMR CHOICE PLUS / Product Type: [...] Brown Ma August 30, 2021 11:52 AM [facility] Clinical Note 06-21-2021 Note Date & Type Note Facility 06-21-2021 Note Patient Outreach (NE TNAV) LUIS ANGEL STEPHENS ([id number]) 2000 M Date Time Provider Department 06/21/21 [...] for Outreach Attribution: Provider Off-boarding Payer: Payor: [facility] / Plan: [facility] UMR CHOICE PLUS / Product Type: [...] future healthcare decisions with a power of state's attorney, living will, or advance directives? No. Please bring a copy to your next appointment or email to [email or web address] Referrals: N/A Message Sent to Practice: NO Navigation Signature: Orly Hill Population Health Navigator June 21, 2021 9:17 AM Allergies As of Date: 06/21/2021 (No Known Allergies) Date Reviewed: 12/24/2019 Reviewed by: Aicha ([facility]) ZAC Hernandez - Fully Assessed Reason for [...] by SERGIO POPULATION HEALTH NAVIGATORORLY on 06/21/21 [facility] Progress note 06-21-2021 Note Date & Type Note Facility 06-21-2021 Note HNO ID: [id number] Author: Orly Hill Population Health Navigator Service: ? Author Type: [...] for Outreach Attribution: Provider Off-boarding Payer: Payor: [facility] / Plan: [facility] UM CHOICE PLUS / Product Type: [...] future healthcare decisions with a power of state's attorney, living will, or advance directives? No. Please bring a copy to your next appointment or email to Referrals: N/A Message Sent to Practice: NO Navigation Signature: Orly Hill Population Health Navigator June 21, 2021 9:17 AM [facility] Summary Purpose Family History No Family History [...] DATE CREATED AUTHOR AUTHOR'S ORGANIZ ATION 06/15/2022 [facility] DATE CREATED AUTHOR AUTHOR'S ORGANIZ ATION 04/09/2023 [facility] FOR RECORDS PERTAINING TO PATIENTS WHO ARE [...] BE BASED ON THE PRIMARY CLINICAL RECORDS. [employer] provides no warranty or guarantee of the accuracy or completeness of information in this document.
[2023-07-21 13:06] LABS: Anion Gap 16 (5-15); BUN 19 mg/dL (7-18); BUN/Creat Ratio 11.8 RATIO (10-20); Calcium,Total 9.4 mg/dL (8.5-10.1); Chloride 105 mmol/L (98-107); Creatinine, Serum 1.61 mg/dL (0.70-1.30); EST Glomerular Filtration Rate 56 mL/min (>60); Est Glom Filt Rate - Afr Amer 68 mL/min (>60); Estimated Creatinine Clearance 68.45 ml/min; Glucose 122 mg/dL (74-106); Potassium 4.1 mmol/L (3.5-5.1); Sodium Level 135 mmol/L (136-145)
--- NOTE | 2023-07-21 13:27 | PCM.HP.STD ---
HPI - General General Date of Admission: 07/21/23 Date of Service: 07/21/23 Chief Complaint: Concern for DKA HPI Narrative LUIS ANGEL STEPHENS, is a 22 M who presented to [facility] ED on 07/21/2023 with dizziness, lightheadedness and nausea/vomiting concerning for DKA. Patient seen at bedside in the ED, parents present. Patient was laying back comfortably in bed, conversing normally, no acute distress. He appeared to have good energy at this time. He was eating ice chips during the encounter without issue. Patient is a type I diabetic. Was initially diagnosed back in 2016. Followed with endocrinology in [place] until recently when he established with Dr. Gregory's office. Has first appointment with Geneva Arteaga on 06/29/2023. Has an insulin pump and uses Dexcom for glucose monitoring. Has had poorly controlled diabetes to this point, most recent A1c's have been around 12 to 13%. Patient stated at that appointment that he intermittently would take his pump off and would not dose his insulin appropriately. He was actually prescribed Lantus by his previous bufferer because of his poorly controlled diabetes, but making discontinued Lantus at his recent appointment. 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 He began having URI type symptoms about 1 week ago after spending a good amount time outside in the cold for his job. He had not been eating or drinking much over the past week or so. Patient woke up this morning and had lightheadedness and dizziness and had a few episodes of nausea with vomiting. He noticed that his insulin pump was alerting him that the pump was blocked. He switched pump sites this morning before coming into the hospital. He came in to the hospital because he has had DKA before and states his symptoms this morning were very similar to previous symptoms he has with DKA. Patient currently denies any lightheadedness or dizziness. Denies feeling nauseous at this time. However, he does not have much of an appetite at this point. He denies any fevers or chills. Reports a mild sore throat but feels this is most likely due to his vomiting. No other acute concerns at this time. [facility] Medical History Diabetes Diabetes type I Erythrocytosis Thrombocytosis Home Medications Insulin Basal Pump (Pt's Own) [Pump, Basal] 1 unit continuous IV infusion UD diabetes 07/26/20 [History Last Taken Unknown] acetaminophen 500 mg capsule 1,500 mg PO DAILY PRN pain 07/21/23 [History Last Taken 07/21/23] aspirin-diphenhydramine 325 mg-38 mg effervescent tablet 1 ea PO QHS 07/21/23 [History Last Taken 07/20/23] insulin aspart U-100 100 unit/mL subcutaneous solution (Novolog U-100 Insulin aspart) See Rx Instructions .Route .COMPLEX 07/21/23 [History Last Taken 07/21/23] phenylephrine 5 mg-dextromethorphan 10 mg-acetaminophen 325 mg capsule (Carmen-[place] Plus Day) 1 cap PO Q8H COLD 07/21/23 [History Last Taken 07/20/23] Allergy/AdvReac Type Severity Reaction Status Date / Time No Known Allergies Allergy Verified 07/21/23 11:03 Family History Father Hypertension Grandmother Kidney disease Surgical History no surgical history Social History Smoking Status: Never smoker alcohol intake: never substance use type: does not use frequency: 3-4 times per week ROS Constitutional Constitutional: Denies chills, fatigue, fever(s), malaise or weakness Eyes Eyes: Denies change in vision ENT HEENT: Reports nasal congestion and sore throat; Denies nasal discharge or sinus pressure Cardiovascular Cardiovascular: Reports lightheadedness; Denies chest pain, dyspnea on exertion, edema or palpitations Respiratory/Chest Respiratory/Chest: Denies cough, shortness of breath at rest, shortness of breath with exertion or wheezing Gastrointestinal Gastrointestinal: Reports nausea and vomiting; Denies abdominal pain, constipation or diarrhea Genitourinary Genitourinary: Denies dysuria Musculoskeletal Musculoskeletal: Denies arthralgias or back pain Neurologic Neurologic: Reports dizziness; Denies focal weakness, headache(s), numbness or paresthesias Vital Signs Vital Signs Vital Signs: 07/21/23 11:03 07/21/23 11:02 07/21/23 12:02 Temperature 98.2 F Temperature Source Temporal Pulse Rate 143 H Respiratory Rate 18 18 Respiratory Effort Normal Non-Labored Respiratory Pattern Normal Blood Pressure 102/86 H Blood Pressure Mean 91 Pulse Ox 100 Oxygen Delivery Method Room Air Weight Weight: 77.836 kg Body Mass Index (BMI) 26.1 Physical Exam Const alert, oriented x3, no apparent distress, average body habitus, healthy appearing and well nourished Constitutional Narrative: Pleasant young male, lying comfortably in bed, conversing normally, no acute distress. General Appearance: cooperative, comfortable, well kempt and well developed HEENT normocephalic, head/scalp atraumatic, hearing grossly normal bilaterally and nasal mucous membranes and turbinates normal HEENT Narrative: Dry mucous membranes. Eyes PERRL, EOMs intact bilaterally and conjunctivae normal Neck full ROM, no lymphadenopathy and supple Lymph Lymphatic: no lymphadenopathy noted Chest inspection of chest normal Resp normal respiratory effort, normal air movement, no use of accessory muscles and clear to auscultation bilaterally Cardio regular rate, regular rhythm, no murmurs and peripheral pulses 2+ throughout GI normal to inspection, nondistended, normoactive bowel sounds, soft to palpation, non-tender and non-distended GI Narrative: Insulin pump site noted in lower abdomen, appears grossly normal. Back/Spine normal ROM Extremity normal to inspection, full ROM and no pedal edema Skin no rashes or lesions noted Neuro moves all extremities and no focal motor deficits Speech: speech normal Psych mental status grossly normal Results Lab / Micro Data 07/21/23 12:25 07/21/23 12:25 Labs: Laboratory Results - last 24 hr 07/21/23 12:16: POC Glucose 86 07/21/23 12:25: WBC 8.4, RBC 6.22 H, Hgb 18.8 H*, Hct 52.0, MCV 83.6, MCH 30.2, MCHC 36.2 H, RDW Std Deviation 34.8 L, RDW Coeff of Maribell 11.7, Plt Count 326, MPV 9.8, Immature Gran % (Auto) 0.500, Neut % (Auto) 58.5, Lymph % (Auto) 35.3, Sebastian % (Auto) 5.5, Eos % (Auto) 0.0, Baso % (Auto) 0.2, Absolute Neuts (auto) 4.9, Absolute Lymphs (auto) 2.96, Nucleated RBC % 0, Diff Path Review May foll, Sodium 135 L, Potassium 4.1, Chloride 105, Carbon Dioxide 14.0 L, Anion Gap 16 H, BUN 19 H, Creatinine 1.61 H, Estim Creat Clear Calc 68.45, Est GFR (MDRD) Af Amer 68, Est GFR (MDRD) Non-Af 56 L, BUN/Creatinine Ratio 11.8, Glucose 122 H, Calcium 9.4, Acetone Level LARGE H Assessment & Plan Assessment/Plan (1) DKA (diabetic ketoacidoses): (2) HIPOLITO (acute kidney injury): PLAN: Plan Patient is a 22-year-old male who presented to [facility] ED on 07/21/2023 with concern for DKA. 1. Anion gap metabolic acidosis concerning for DKA versus starvation ketosis, history of type 1 diabetes mellitus Labs on admit with bicarb 14, anion gap 16, urine ketones 150, urine glucose 1000, large acetone level. However, blood glucose only 122. Suspect this may be multifactorial with DKA and starvation ketosis both contributing. COVID/flu/RSV pending. ? Admit under inpatient status to the ICU. DKA protocol ordered. Will start insulin drip with D5/half-normal saline at 150 ml/hr to ensure patient does not become hypoglycemic. Monitor BMP every 4 hours. Patient hemodynamically stable and noninfectious appearing, hold on further infectious workup aside from COVID/flu/RSV testing as noted above. N.p.o. for now. Follows with Dr. Gregory's office, can call for further recommendations as needed. 2. HIPOLITO ? Creatinine 1.61 on admit, baseline creatinine appears to be around 1.0-1.2. Suspect prerenal etiology from poor p.o. intake and fluid losses. IV fluids with frequent BMP checks as noted above. Urine sodium and creatinine ordered to calculate FeNa. 3. Erythrocytosis ? Hemoglobin 18.8 on admit, baseline hemoglobin appears to be around 15-16. Suspect secondary to hemodilution. Follow-up a.m. CBC. DVT prophylaxis: Lovenox CODE STATUS: Full code, verified Expected disposition: Home, 2 to 3 days Total clinical time spent by myself addressing the patient's medical issues, reviewing all the data, and collaborating with patient's care team: 55 minutes. Charges/Coding Visit Charges Inpatient E&M: 73715 Init Hosp L2
[2023-07-21 13:31] LABS: Bacteria 0 SEEN /hpf (None Seen); Mucous, Urine 0 SEEN /hpf (<or=2+); Red Blood Cells-Urine 0 SEEN /hpf (0-5); Squamous Epithelial Cells - UA 0 SEEN /hpf (0-5); White Blood Cells 0 SEEN /hpf (0-5)
[2023-07-21 13:34] LABS: Color, Urine Yellow (Yellow); Glucose, Dipstick 1000 mg/dl (Normal); Leukocyte Esterase-Dipstick Negative /ul (Negative); Nitrite-Dipstick Negative (Negative); Occult Blood-Urine 10 /ul (Negative); Protein-Dipstick 100 mg/dl (Negative); Specific Gravity, Urine 1.025 (1.002-1.030); Urine Clarity Clear (Clear); Urine Urobilinogen Normal (Normal)
[2023-07-21 13:41] LABS: Ketone-Dipstick 150 mg/dl (Negative); Urine Bilirubin Dipstick 1 mg/dL (Negative)
[2023-07-21 13:43] LABS: Fine Granular Cast- Urine 10-25 SEEN /lpf (0-5)
[2023-07-21 13:49] LABS: Bedside Glucose 75 mg/dL (74-106)
[2023-07-21] MEDS: Insulin Lispro 100 UNIT in 0.9% Normal Saline (100mL Bag) 99 ML 7.79999999999999982 UNIT CONT INF (13:52)
[2023-07-21] MEDS: Dextrose 50%-Water 25 GM/50 ML DISP.SYRIN IV ×2 (14:03→19:40)
[2023-07-21] MEDS: Dext 5%-0.45% NS 1,000 ML 150 ML IV (14:04)
[2023-07-21 14:06] LABS: Magnesium 3.1 mg/dL (1.6-2.6)
--- OUTSIDE RECORDS SUMMARY | 2023-07-21 14:14 | XMS RPT_ITS | CCD ---
Author Name Unknown Address [address] [place] [address] Organization [facility] Care Team Providers Care Advisory Intern Name Role Phone RHODA BOYD Attending Unavailable CEBUL III, ROSALIO Monique Referring Unavailable CEBUL III, ROSALIO A Primary Care Unavailable CAROLINE SILVA Attending Unavailable CEBUL III, ROSALIO Monique Referring Unavailable CEBUL III, ROSALIO A Primary Care Unavailable Results Test Name Value Interpretation Reference Range Facil ity Encounters Encounter Date Encounter Type Care Provider Facility Start: 04-04-2023 End: 04-04-2023 ambulatory RHODA BOYD [facility] Start: 06-23-2022 End: 06-23-2022 ambulatory CAROLINE SILVA [facility] Start: 06-08-2022 End: 06-08-2022 ambulatory Facility:[facility] Payers Date Payer Category Payer Unknown [id number] 2000 Unknown [id number] 2000 Unknown [id number] Unknown [id number] Clinical Note 08-30-2021 Note Date & Type Note Facility 08-30-2021 Note Patient Outreach (FA MPWS) LUIS ANGEL STEPHENS ([id number]) 2000 M Date Time Provider Department 08/30/21 [...] Care Gap or Scheduling/Wellness visits Payer: Payor: [facility] / Plan: [facility] UM CHOICE PLUS / Product Type: HMO [...] Allergies) Date Reviewed: 12/24/2019 Reviewed by: Aicha ([facility]) ZAC Hernandez - Fully Assessed Reason for Visit: PHMA/Care Gap Outreach [[id number]] Prescriptions as of 09/03/2021 - insulin glargine [...] Status:Closed by THELMA COMER MA on 09/03/21 [facility] Progress note 08-30-2021 Note Date & Type Note Facility 08-30-2021 Note HNO ID: [id number] Author: Srinivas Brown Ma Service: ? Author [...] Care Gap or Scheduling/Wellness visits Payer: Payor: [facility] / Plan: [facility] UMR CHOICE PLUS / Product Type: HMO [...] Brown Ma August 30, 2021 11:52 AM [facility] Clinical Note 06-21-2021 Note Date & Type Note Facility 06-21-2021 Note Patient Outreach (NE TNAV) LUIS ANGEL STEPHENS ([id number]) 2000 M Date Time Provider Department 06/21/21 [...] for Outreach Attribution: Provider Off-boarding Payer: Payor: [facility] / Plan: [facility] UMR CHOICE PLUS / Product Type: HMO [...] future healthcare decisions with a power of health care / medical job titles, living will, or advance directives? No. Please bring a copy to your next appointment or email to [email or web address] Referrals: N/A Message Sent to Practice: NO Navigation Signature: Orly Hill Population Health Navigator June 21, 2021 9:17 AM Allergies As of Date: 06/21/2021 (No Known Allergies) Date Reviewed: 12/24/2019 Reviewed by: Aicha ([facility]) ZAC Hernandez - Fully Assessed Reason for [...] by SERGIO POPULATION HEALTH NAVIGATORORLY on 06/21/21 [facility] Progress note 06-21-2021 Note Date & Type Note Facility 06-21-2021 Note HNO ID: [id number] Author: Orly Hill Population Health Navigator Service: [...] for Outreach Attribution: Provider Off-boarding Payer: Payor: [facility] / Plan: [facility] UM CHOICE PLUS / Product Type: HMO [...] future healthcare decisions with a power of health care / medical job titles, living will, or advance directives? No. Please bring a copy to your next appointment or email to Referrals: N/A Message Sent to Practice: NO Navigation Signature: Orly Hill Population Health Navigator June 21, 2021 9:17 AM [facility] Summary Purpose Family History No Family [...] DATE CREATED AUTHOR AUTHOR'S ORGANIZ ATION 06/15/2022 [facility] DATE CREATED AUTHOR AUTHOR'S ORGANIZ ATION 04/09/2023 [facility] FOR RECORDS PERTAINING TO PATIENTS WHO [...] BE BASED ON THE PRIMARY CLINICAL RECORDS. [employer] provides no warranty or guarantee of the accuracy or completeness of information in this document.
[2023-07-21 15:05] LABS: Protein, Urine (Random) 184.5 mg/dL (<11.9); Protein:Creat Ratio 1367 mg/g CRE (0-200); Urine Sodium 32 mmol/L (Not Establ.)
[2023-07-21 15:43] LABS: Bedside Glucose 106 mg/dL (74-106)
[2023-07-21 16:26] LABS: Anion Gap 10 (5-15); BUN 18 mg/dL (7-18); BUN/Creat Ratio 14.4 RATIO (10-20); Calcium,Total 8.5 mg/dL (8.5-10.1); Chloride 108 mmol/L (98-107); Creatinine, Serum 1.25 mg/dL (0.70-1.30); EST Glomerular Filtration Rate 75 mL/min (>60); Est Glom Filt Rate - Afr Amer 91 mL/min (>60); Estimated Creatinine Clearance 98.03 ml/min; Glucose 153 mg/dL (74-106); Sodium Level 135 mmol/L (136-145)
[2023-07-21 16:35] LABS: Bedside Glucose 77 mg/dL (74-106)
[2023-07-21 17:32] LABS: Bedside Glucose 74 mg/dL (74-106)
[2023-07-21 18:47] LABS: Bedside Glucose 61 mg/dL (74-106)
[2023-07-21 19:54] LABS: Bedside Glucose 56 mg/dL (74-106)
[2023-07-21 20:08] LABS: Anion Gap 9 (5-15); BUN 16 mg/dL (7-18); BUN/Creat Ratio 13.6 RATIO (10-20); Calcium,Total 8.5 mg/dL (8.5-10.1); Chloride 109 mmol/L (98-107); Creatinine, Serum 1.18 mg/dL (0.70-1.30); EST Glomerular Filtration Rate 80 mL/min (>60); Est Glom Filt Rate - Afr Amer 97 mL/min (>60); Estimated Creatinine Clearance 103.84 ml/min; Glucose 63 mg/dL (74-106); Potassium 3.5 mmol/L (3.5-5.1); Sodium Level 136 mmol/L (136-145)
[2023-07-21 20:23] LABS: Bedside Glucose 169 mg/dL (74-106)
[2023-07-21 20:47] LABS: Bedside Glucose 128 mg/dL (74-106)
[2023-07-21] MEDS: Acetaminophen 325 MG Tablet 650 MG PO (21:32)
[2023-07-21] MEDS: MELATONIN 3 MG TABLET PO (21:33)
[2023-07-21] MEDS: KCL 20MEQ in D5.45NS 20 MEQ/1,000 ML IV.SOLN. 150 MEQ IV (21:42)
[2023-07-21 21:56] LABS: Bedside Glucose 131 mg/dL (74-106)
[2023-07-21 22:46] LABS: Bedside Glucose 184 mg/dL (74-106)
[2023-07-21 23:11] LABS: Magnesium 2.4 mg/dL (1.6-2.6); Phosphorus 3.3 mg/dL (2.5-4.9)
[2023-07-21 23:45] LABS: Bedside Glucose 230 mg/dL (74-106)
[2023-07-22] VITALS (13 sets, daily range): BP systolic 107–125; BP diastolic 63–102; PULSE 73–101; RESP 12–19; TEMP 36.2–36.8; O2SAT 97–99; BMI 27.1
[2023-07-22 00:25] LABS: Anion Gap 12 (5-15); BUN 18 mg/dL (7-18); BUN/Creat Ratio 14.4 RATIO (10-20); Calcium,Total 8.3 mg/dL (8.5-10.1); Chloride 106 mmol/L (98-107); Creatinine, Serum 1.25 mg/dL (0.70-1.30); EST Glomerular Filtration Rate 75 mL/min (>60); Est Glom Filt Rate - Afr Amer 91 mL/min (>60); Estimated Creatinine Clearance 98.03 ml/min; Glucose 249 mg/dL (74-106); Potassium 3.8 mmol/L (3.5-5.1); Sodium Level 134 mmol/L (136-145)
[2023-07-22 00:45] LABS: Bedside Glucose 227 mg/dL (74-106)
[2023-07-22 01:49] LABS: Bedside Glucose 171 mg/dL (74-106)
[2023-07-22 02:44] LABS: Bedside Glucose 160 mg/dL (74-106)
[2023-07-22 04:03] LABS: Bedside Glucose 189 mg/dL (74-106)
[2023-07-22 04:09] LABS: Hematocrit 42.7 % (40-54); Hemoglobin 15.7 g/dL (13.0-16.5); Mean Corp Hgb Conc 36.8 g/dL (32-36); Mean Corpuscular Hgb 30.5 pg (27.0-32.0); Mean Corpuscular Volume 83.1 fL (80-94); Platelet Count 249 K/mm3 (150-450); RBC Distribution Width CV 11.7 % (11.6-14.6); RBC Distribution Width SD 35.5 fl (35.1-43.9); Red Blood Count 5.14 M/mm3 (4.6-6.2); White Blood Count 6.6 K/mm3 (4.4-11.0)
[2023-07-22] MEDS: KCL 20MEQ in D5.45NS 20 MEQ/1,000 ML IV.SOLN. 150 MEQ IV (04:23)
[2023-07-22 04:34] LABS: Anion Gap 10 (5-15); BUN 17 mg/dL (7-18); BUN/Creat Ratio 13.3 RATIO (10-20); Calcium,Total 8.2 mg/dL (8.5-10.1); Chloride 109 mmol/L (98-107); Creatinine, Serum 1.28 mg/dL (0.70-1.30); EST Glomerular Filtration Rate 73 mL/min (>60); Est Glom Filt Rate - Afr Amer 88 mL/min (>60); Estimated Creatinine Clearance 95.73 ml/min; Glucose 190 mg/dL (74-106); Potassium 3.4 mmol/L (3.5-5.1); Sodium Level 137 mmol/L (136-145)
[2023-07-22 04:48] LABS: Bedside Glucose 146 mg/dL (74-106)
[2023-07-22 05:11] LABS: Bedside Glucose 120 mg/dL (74-106)
[2023-07-22 05:11] LABS: Bedside Glucose 116 mg/dL (74-106)
[2023-07-22 05:50] LABS: Bedside Glucose 114 mg/dL (74-106)
[2023-07-22] MEDS: Potassium Chloride Oral Soln 20 MEQ/15 ML UDC 40 MEQ PO (06:12)
[2023-07-22] MEDS: 0.9% Saline Lock 10 ML Syringe IV (06:27)
[2023-07-22 06:46] LABS: Bedside Glucose 98 mg/dL (74-106)
--- NOTE | 2023-07-22 07:12 | PN.HOSP_ITS ---
Reason for Visit Reason for Visit: Diagnoses Type 2 diabetes mellitus with ketoacidosis without coma (07/21/23) Acute kidney failure, unspecified (07/21/23) Objective Data Objective Data Vital Signs: Vital Signs Temp Pulse Resp BP Pulse Ox O2 Del Method 97.1 F L 85 14 120/81 H 97 Room Air 07/22/23 05:00 07/22/23 06:00 07/22/23 06:00 07/22/23 06:00 07/22/23 06:00 07/22/23 06:00 Oxygen Delivery Method Room Air Weight: 178 lb 1.6 oz Body Mass Index (BMI) 27.1 Intake & Output: Intake and Output for Last 24 Hours 07/20/23 07/21/23 07/22/23 23:59 23:59 23:59 Intake Total 2086.82 / 2086.82 1212 / 1212 Output Total 0 / 0 Balance 2086.82 / 2086.82 1212 / 1212 Lab / Micro Data 07/22/23 03:55 07/22/23 03:55 Labs: Laboratory Results - last 24 hr 07/21/23 11:24: POC Glucose 116 H 07/21/23 11:25: Magnesium 3.1 H 07/21/23 11:27: POC Glucose 120 H 07/21/23 12:16: POC Glucose 86 07/21/23 12:25: WBC 8.4, RBC 6.22 H, Hgb 18.8 H*, Hct 52.0, MCV 83.6, MCH 30.2, MCHC 36.2 H, RDW Std Deviation 34.8 L, RDW Coeff of Maribell 11.7, Plt Count 326, MPV 9.8, Immature Gran % (Auto) 0.500, Neut % (Auto) 58.5, Lymph % (Auto) 35.3, Mckenzie % (Auto) 5.5, Eos % (Auto) 0.0, Baso % (Auto) 0.2, Absolute Neuts (auto) 4.9, Absolute Lymphs (auto) 2.96, Nucleated RBC % 0, Diff Path Review October, Sodium 135 L, Potassium 4.1, Chloride 105, Carbon Dioxide 14.0 L, Anion Gap 16 H , BUN 19 H, Creatinine 1.61 H, Estim Creat Clear Calc 68.45, Est GFR (MDRD) Af Amer 68, Est GFR (MDRD) Non-Af 56 L, BUN/Creatinine Ratio 11.8, Glucose 122 H, Calcium 9.4, Acetone Level LARGE H 07/21/23 13:23: Urine Color Yellow, Urine Clarity Clear, Urine pH 5.0, Ur Specific [place] 1.025, Urine Protein 100 H, Urine Glucose (UA) 1000 H, Urine Ketones 150 A*, Urine Occult Blood 10 H, Urine Nitrite Negative, Urine Bilirubin 1 H, Urine Urobilinogen Normal, Ur Leukocyte Esterase Negative, Urine RBC 0 SEEN, Urine WBC 0 SEEN, Ur Squamous Epith Cells 0 SEEN, Urine Bacteria 0 SEEN, Fine Granular Casts 10-25 SEEN, Urine Mucus 0 SEEN, U Random Total Protein 184.5 H, Ur Random Sodium 32, Urine Creatinine 135.00, Protein/Creatinin Ratio 1367 H 07/21/23 13:30: POC Glucose 75 07/21/23 15:16: POC Glucose 106 07/21/23 16:07: Sodium 135 L, Potassium 4.0, Chloride 108 H, Carbon Dioxide 17.0 L, Anion Gap 10, BUN 18, Creatinine 1.25, Estim Creat Clear Calc 98.03, Est GFR (MDRD) Af Amer 91, Est GFR (MDRD) Non-Af 75, BUN/Creatinine Ratio 14.4, Glucose 153 H, Calcium 8.5 07/21/23 16:17: POC Glucose 77 07/21/23 17:14: POC Glucose 74 07/21/23 18:24: POC Glucose 61 L 07/21/23 19:28: POC Glucose 56 L 07/21/23 19:50: Sodium 136, Potassium 3.5, Chloride 109 H, Carbon Dioxide 18.0 L , Anion Gap 9, BUN 16, Creatinine 1.18, Estim Creat Clear Calc 103.84, Est GFR (MDRD) Af Amer 97, Est GFR (MDRD) Non-Af 80, BUN/Creatinine Ratio 13.6, Glucose 63 L, Calcium 8.5, Phosphorus 3.3, Magnesium 2.4 07/21/23 20:04: POC Glucose 169 H 07/21/23 20:26: POC Glucose 128 H 07/21/23 21:32: POC Glucose 131 H 07/21/23 22:28: POC Glucose 184 H 07/21/23 23:27: POC Glucose 230 H 07/22/23 00:00: Sodium 134 L, Potassium 3.8, Chloride 106, Carbon Dioxide 16.0 L , Anion Gap 12, BUN 18, Creatinine 1.25, Estim Creat Clear Calc 98.03, Est GFR (MDRD) Af Amer 91, Est GFR (MDRD) Non-Af 75, BUN/Creatinine Ratio 14.4, Glucose 249 H, Calcium 8.3 L 07/22/23 00:27: POC Glucose 227 H 07/22/23 01:29: POC Glucose 171 H 07/22/23 02:27: POC Glucose 160 H 07/22/23 03:28: POC Glucose 189 H 07/22/23 03:55: WBC 6.6, RBC 5.14, Hgb 15.7, Hct 42.7, MCV 83.1, MCH 30.5, MCHC 36.8 H, RDW Std Deviation 35.5, RDW Coeff of Maribell 11.7, Plt Count 249, MPV 9.0, Sodium 137, Potassium 3.4 L, Chloride 109 H, Carbon Dioxide 18.0 L, Anion Gap 10, BUN 17, Creatinine 1.28, Estim Creat Clear Calc 95.73, Est GFR (MDRD) Af Amer 88, Est GFR (MDRD) Non-Af 73, BUN/Creatinine Ratio 13.3, Glucose 190 H, Calcium 8.2 L 07/22/23 04:30: POC Glucose 146 H 07/22/23 05:30: POC Glucose 114 H 07/22/23 06:26: POC Glucose 98 Micro: Microbiology 07/21/23 13:54 Mucosa - Nose SARS-CoV-2, Influenza & RSV (PCR) - Final Influenzae B Assessment & Plan Assessment/Plan (1) DKA (diabetic ketoacidoses): QUALIFIERS: Diabetes mellitus type: type 1 Diabetes mellitus complication detail: without coma Qualified Code(s): E10.10 - Type 1 diabetes mellitus with ketoacidosis without coma (2) HIPOLITO (acute kidney injury): PLAN: Plan Patient is a 22-year-old male who presented to [facility] ED on 07/21/2023 with concern for DKA. 1. Anion gap metabolic acidosis concerning for DKA versus starvation ketosis, history of type 1 diabetes mellitus Labs on admit with bicarb 14, anion gap 16, urine ketones 150, urine glucose 1000, large acetone level. However, blood glucose only 122. Suspect this may be multifactorial with DKA and starvation ketosis both contributing. COVID/flu/RSV pending. ? Admit under inpatient status to the ICU. DKA protocol ordered. Will start insulin drip with D5/half-normal saline at 150 ml/hr to ensure patient does not become hypoglycemic. Monitor BMP every 4 hours. Patient hemodynamically stable and noninfectious appearing, hold on further infectious workup aside from COVID/flu/RSV testing as noted above. N.p.o. for now. Follows with Dr. Gregory's office, can call for further recommendations as needed. 2. HIPOLITO ? Creatinine 1.61 on admit, baseline creatinine appears to be around 1.0-1.2. S uspect prerenal etiology from poor p.o. intake and fluid losses. IV fluids with frequent BMP checks as noted above. Urine sodium and creatinine ordered to calculate FeNa. 3. Erythrocytosis ? Hemoglobin 18.8 on admit, baseline hemoglobin appears to be around 15-16. Suspect secondary to hemodilution. Follow-up a.m. CBC. DVT prophylaxis: Lovenox CODE STATUS: Full code, verified Expected disposition: Home, 2 to 3 days Total clinical time spent by myself addressing the patient's medical issues, reviewing all the data, and collaborating with patient's care team: 55 minutes.
[2023-07-22 08:09] LABS: Anion Gap 6 (5-15); BUN 15 mg/dL (7-18); BUN/Creat Ratio 12.5 RATIO (10-20); Calcium,Total 8.5 mg/dL (8.5-10.1); Chloride 111 mmol/L (98-107); EST Glomerular Filtration Rate 79 mL/min (>60); Est Glom Filt Rate - Afr Amer 95 mL/min (>60); Estimated Creatinine Clearance 91.83 ml/min; Glucose 124 mg/dL (74-106); Potassium 4.3 mmol/L (3.5-5.1); Sodium Level 135 mmol/L (136-145)
--- NOTE | 2023-07-22 08:25 | DCINST_ITS ---
Discharge Instructions Diet Discharge Diet: Low fat / Low cholesterol and 1800 Calorie Control Diet Activity Discharge Activity: Return to Normal Activity Weight Bearing Status: Weight bearing as tolerated Dressing / Incision Call your doctor if you observe: Fever of 101 or Higher, Coldness, Increased Pain, Numbness or Tingling, Change in Color, Inability to urinate, Inability to have a bowel movement, Shortness of breath, Dizziness, Fainting spells, Swelling in the ankles, Chest pain, Prolonged hiccupping, Increased palpitations (irregular heartbeat) and Calf discomfort Follow Up Care When: IN 2 WEEKS Test Results: Test results from this visit will be discussed in further detail at your follow- up appointment, if applicable. Discharge Plan Admission Admit Date/Time: 07/21/23 13:34 Primary Reason for Your Visit: DKA. Attending Provider: Tao Ruby Primary Care Provider: Victor Manuel Ayers Consulting Providers: Franck Seay Discharge Orders/Prescriptions Prescriptions: Continued Insulin Basal Pump (Pt's Own) [Pump, Basal] 1 UNIT Pump 1 unit CONT INF UD insulin aspart U-100 [Novolog U-100 Insulin aspart] 100 unit/mL solution See Rx Instructions .ROUTE .COMPLEX Rx Instructions: CONTINUOUS THROUGH PUMP acetaminophen 500 mg capsule 1,500 mg PO DAILY PRN (Reason: pain) Patient Comments: PT STATES HAS TAKEN ABOUT 3 DAILY FOR THE PAST WEEK Changed Carmen-[place] Plus Day 5-10-325 mg capsule 1 cap PO Q8H PRN (Reason: COLD) Qty: 2 0RF Rx Instructions: OTC Discontinued aspirin-diphenhydramine 325-38 mg tablet, effervescent 1 ea PO QHS Referrals / Follow Up: Victor Manuel Ayers MD [Primary Care Provider] - Tushar Gregory MD [Med Staff - Courtesy Staff] - Within 2 Weeks (FOR ADJUSTMENT OF Insulin pump) Disposition Disposition (needs filled in before D/C Order can be placed): Home, Self Care
[2023-07-22 09:13] LABS: Magnesium 2.4 mg/dL (1.6-2.6); Phosphorus 3.2 mg/dL (2.5-4.9)
[2023-07-22] MEDS: Potassium Chloride Oral Tablet 20 MEQ 40 MEQ PO (09:23)
[2023-07-22] MEDS: Insulin Glargine-YFGN 100 UNIT/ML Pen 8 UNIT SC (09:24)
[2023-07-22] MEDS: Enoxaparin 40 MG/0.4 ML Syringe SC (09:25)
--- NOTE | 2023-07-22 10:58 | NURSING ---
Insulin gtt decreased to 1 unit/hr prior to the arrival of this RN.
--- NOTE | 2023-07-22 11:49 | PCM.DC.SUM ---
Providers Date of Admission: 07/21/23 Date of Discharge: 07/22/23 Primary Care Physician: Dr. Victor Manuel Ayers MD Reason For Visit: DKA Diagnosis Discharge Diagnosis (1) DKA (diabetic ketoacidoses): Status: Acute Code(s): E11.10 - Type 2 diabetes mellitus with ketoacidosis without coma Qualifiers: Diabetes mellitus complication detail: without coma Diabetes mellitus type: type 1 Qualified Code(s): E10.10 - Type 1 diabetes mellitus with ketoacidosis without coma (2) HIPOLITO (acute kidney injury): Status: Acute Code(s): N17.9 - Acute kidney failure, unspecified Plan Patient is a 22-year-old male who presented to [facility] ED on 07/21/2023 with concern for DKA. 1. Anion gap metabolic acidosis concerning for DKA versus starvation ketosis, history of type 1 diabetes mellitus Labs on admit with bicarb 14, anion gap 16, urine ketones 150, urine glucose 1000, large acetone level. However, blood glucose only 122. Suspect this may be multifactorial with DKA and starvation ketosis both contributing. COVID/flu/RSV pending. Patient was admitted under inpatient status in ICU as per DKA protocol . Was treated with insulin drip with D5/half-normal saline at 150 ml/hr to ensure patient does not become hypoglycemic. As per protocol when anion gap closed x 2, actually it was x 4 because her bicarb is still low 18 but it came up to 20, insulin drip was discontinued after overlap of 4 hours of Lantus insulin. Patient has insulin pump which is being managed by increment manager Dr. Tushar Gregory. Patient knows how to monitor glucose and adjust the insulin pump. Patient is discharged home. He is symptoms of nausea, generalized weakness has resolved. Hypokalemia has resolved. Serum magnesium and phosphorus normal. 2. HIPOLITO ? Creatinine 1.61 on admit, baseline creatinine appears to be around 1.0-1.2. Suspect prerenal etiology from poor p.o. intake and fluid losses. IV fluids with frequent BMP checks as noted above. Urine sodium and creatinine ordered to calculate FeNa. 07/22: HIPOLITO resolved. Patient admitting creatinine 1.61 got better to 1.20. 3. Erythrocytosis ? Hemoglobin 18.8 on admit, baseline hemoglobin appears to be around 15-16. Suspect secondary to hemodilution. Follow-up a.m. CBC. 07/22 H&H also got better, 15.7/40-7 it was hemoconcentration giving rise to erythrocytosis. DVT prophylaxis: Lovenox CODE STATUS: Full code, verified Discharge medication reconciliation done. Discharge follow-up instructions completed. Discharge process discussed with the patient and all questions were answered to patient's satisfaction. Follow with PCP in 1 to 2 weeks Total time spent, exact 35 minutes on discharge meds reconciliation, examination, coordination of care with nurses and ancillary staff, review of imaging and blood test and discussion with the patient on follow-up instructions. Patient was admitted as inpatient but was discharged because of sooner recovery than expected at time of admission as patient anion gap, his clinical symptoms labs got better sooner than expected. Medications at Discharge Home Medications Insulin Basal Pump (Pt's Own) [Pump, Basal] 1 unit continuous IV infusion UD diabetes 07/26/20 acetaminophen 500 mg capsule 1,500 mg PO DAILY PRN pain 07/21/23 insulin aspart U-100 100 unit/mL subcutaneous solution (Novolog U-100 Insulin aspart) See Rx Instructions .Route .COMPLEX 07/21/23 phenylephrine 5 mg-dextromethorphan 10 mg-acetaminophen 325 mg capsule ([place]armen[place] Plus Day) 1 cap PO Q8H PRN COLD #2 caps 07/22/23 Physical Exam Narrative Seen and examined. General: Alert, Oriented x3, Cooperative HEENT: Atraumatic, PERRLA, EOMI, Normocephalic Oral: Oral mucosa moist. No Gingival or Mucosal Lesions/ Ulcerations Neck: Supple, No JVD, Negative Carotid Bruits Chest wall/Lungs: Air entry diminished in bilateral lung bases. No crepitation/rhonchi Cardiovascular: Regular rate, Regular Rhythm, Normal S1, Normal S2, No M/G/R Abdomen: Bowel Sounds Present, Soft, Non Tender, Non-Distended : No dysuria. No renal angle tenderness. No suprapubic tenderness. Extremities: No edema, Capillary Refill Less than 3 Seconds Skin: No rashes, No breakdown. Has insulin pump on abdominal wall which is turned off. Musculoskeletal: No Tenderness to Palpation of Joints or Extremities Neurological: Cranial nerves II-XII grossly intact, DTR 2+/4. No acute focal neurological deficit. Psych/Mental Status: Normal Affect, Appropriate. Weight / BMI Weight Weight: 178 lb 1.6 oz Body Mass Index (BMI) 27.1 ABG / Lab / Microbiology Data 07/22/23 03:55 07/22/23 12:25 Laboratory: Laboratory Results - last 24 hr 07/21/23 11:24: POC Glucose 116 H 07/21/23 11:25: Magnesium 3.1 H 07/21/23 11:27: POC Glucose 120 H 07/21/23 12:16: POC Glucose 86 07/21/23 12:25: WBC 8.4, RBC 6.22 H, Hgb 18.8 H*, Hct 52.0, MCV 83.6, MCH 30.2, MCHC 36.2 H, RDW Std Deviation 34.8 L, RDW Coeff of Maribell 11.7, Plt Count 326, MPV 9.8, Immature Gran % (Auto) 0.500, Neut % (Auto) 58.5, Lymph % (Auto) 35.3, [place] % (Auto) 5.5, Eos % (Auto) 0.0, Baso % (Auto) 0.2, Absolute Neuts (auto) 4.9, Absolute Lymphs (auto) 2.96, Nucleated RBC % 0, Diff Path Review October, Sodium 135 L, Potassium 4.1, Chloride 105, Carbon Dioxide 14.0 L, Anion Gap 16 H, BUN 19 H, Creatinine 1.61 H, Estim Creat Clear Calc 68.45, Est GFR (MDRD) Af Amer 68, Est GFR (MDRD) Non-Af 56 L, BUN/Creatinine Ratio 11.8, Glucose 122 H, Calcium 9.4, Acetone Level LARGE H 07/21/23 13:23: Urine Color Yellow, Urine Clarity Clear, Urine pH 5.0, Ur Specific [place] 1.025, Urine Protein 100 H, Urine Glucose (UA) 1000 H, Urine Ketones 150 A*, Urine Occult Blood 10 H, Urine Nitrite Negative, Urine Bilirubin 1 H, Urine Urobilinogen Normal, Ur Leukocyte Esterase Negative, Urine RBC 0 SEEN, Urine WBC 0 SEEN, Ur Squamous Epith Cells 0 SEEN, Urine Bacteria 0 SEEN, Fine Granular Casts 10-25 SEEN, Urine Mucus 0 SEEN, U Random Total Protein 184.5 H, Ur Random Sodium 32, Urine Creatinine 135.00, Protein/Creatinin Ratio 1367 H 01/26/24 13:30: POC Glucose 75 07/21/23 15:16: POC Glucose 106 07/21/23 16:07: Sodium 135 L, Potassium 4.0, Chloride 108 H, Carbon Dioxide 17.0 L, Anion Gap 10, BUN 18, Creatinine 1.25, Estim Creat Clear Calc 98.03, Est GFR (MDRD) Af Amer 91, Est GFR (MDRD) Non-Af 75, BUN/Creatinine Ratio 14.4, Glucose 153 H, Calcium 8.5 07/21/23 16:17: POC Glucose 77 07/21/23 17:14: POC Glucose 74 07/21/23 18:24: POC Glucose 61 L 07/21/23 19:28: POC Glucose 56 L 07/21/23 19:50: Sodium 136, Potassium 3.5, Chloride 109 H, Carbon Dioxide 18.0 L, Anion Gap 9, BUN 16, Creatinine 1.18, Estim Creat Clear Calc 103.84, Est GFR (MDRD) Af Amer 97, Est GFR (MDRD) Non-Af 80, BUN/Creatinine Ratio 13.6, Glucose 63 L, Calcium 8.5, Phosphorus 3.3, Magnesium 2.4 07/21/23 20:04: POC Glucose 169 H 07/21/23 20:26: POC Glucose 128 H 07/21/23 21:32: POC Glucose 131 H 07/21/23 22:28: POC Glucose 184 H 07/21/23 23:27: POC Glucose 230 H 07/22/23 00:00: Sodium 134 L, Potassium 3.8, Chloride 106, Carbon Dioxide 16.0 L, Anion Gap 12, BUN 18, Creatinine 1.25, Estim Creat Clear Calc 98.03, Est GFR (MDRD) Af Amer 91, Est GFR (MDRD) Non-Af 75, BUN/Creatinine Ratio 14.4, Glucose 249 H, Calcium 8.3 L 07/22/23 00:27: POC Glucose 227 H 07/22/23 01:29: POC Glucose 171 H 07/22/23 02:27: POC Glucose 160 H 07/22/23 03:28: POC Glucose 189 H 07/22/23 03:55: WBC 6.6, RBC 5.14, Hgb 15.7, Hct 42.7, MCV 83.1, MCH 30.5, MCHC 36.8 H, RDW Std Deviation 35.5, RDW Coeff of Maribell 11.7, Plt Count 249, MPV 9.0, Sodium 137, Potassium 3.4 L, Chloride 109 H, Carbon Dioxide 18.0 L, Anion Gap 10, BUN 17, Creatinine 1.28, Estim Creat Clear Calc 95.73, Est GFR (MDRD) Af Amer 88, Est GFR (MDRD) Non-Af 73, BUN/Creatinine Ratio 13.3, Glucose 190 H, Calcium 8.2 L 07/22/23 04:30: POC Glucose 146 H 07/22/23 05:30: POC Glucose 114 H 07/22/23 06:26: POC Glucose 98 07/22/23 07:45: Sodium 135 L, Potassium 4.3, Chloride 111 H, Carbon Dioxide 18.0 L, Anion Gap 6, BUN 15, Creatinine 1.20, Estim Creat Clear Calc 91.83, Est GFR (MDRD) Af Amer 95, Est GFR (MDRD) Non-Af 79, BUN/Creatinine Ratio 12.5, Glucose 124 H, Calcium 8.5, Phosphorus 3.2, Magnesium 2.4 Microbiology: Microbiology 07/21/23 13:54 Mucosa - Nose SARS-CoV-2, Influenza & RSV (PCR) - Final Influenzae B D/C Instructions Discharge Diet: Low fat / Low cholesterol and 1800 Calorie Control Diet Weight Bearing Status: Weight bearing as tolerated Call your doctor if you observe: Fever of 101 or Higher, Coldness, Increased Pain, Numbness or Tingling, Change in Color, Inability to urinate, Inability to have a bowel movement, Shortness of breath, Dizziness, Fainting spells, Swelling in the ankles, Chest pain, Prolonged hiccupping, Increased palpitations (irregular heartbeat) and Calf discomfort When: IN 2 WEEKS Meaningful Use Info Meaningful Use Diagnoses (Choose all that apply): None applicable Discharge Plan Admission Admit Date/Time: 07/21/23 13:34 Primary Reason for Your Visit: DKA. Attending Provider: Tao Ruby Primary Care Provider: Victor Manuel Ayers Consulting Providers: Franck Seay Discharge Orders/Prescriptions Prescriptions: Continued Insulin Basal Pump (Pt's Own) [Pump, Basal] 1 UNIT Pump 1 unit CONT INF UD insulin aspart U-100 [Novolog U-100 Insulin aspart] 100 unit/mL solution See Rx Instructions .ROUTE .COMPLEX Rx Instructions: CONTINUOUS THROUGH PUMP acetaminophen 500 mg capsule 1,500 mg PO DAILY PRN (Reason: pain) Patient Comments: PT STATES HAS TAKEN ABOUT 3 DAILY FOR THE PAST WEEK Changed Carmen[place] Plus Day 5-10-325 mg capsule 1 cap PO Q8H PRN (Reason: COLD) Qty: 2 0RF Rx Instructions: OTC Discontinued aspirin-diphenhydramine 325-38 mg tablet, effervescent 1 ea PO QHS Referrals / Follow Up: Victor Manuel Ayers MD [Primary Care Provider] - Tushar Gregory MD [Med Staff - Courtesy Staff] - Within 2 Weeks (FOR ADJUSTMENT OF Insulin pump) Disposition Disposition (needs filled in before D/C Order can be placed): Home, Self Care Charges/Coding Visit Charges Inpatient E&M: 87994 Disch Hosp >30min
--- NOTE | 2023-07-22 12:05 | CASEMGMT ---
RN?CM?SOLDER DEPOSIT OPERATOR?CM?to room to meet with patient for initial transition planning/care coordination?assessment.?RN?CM?introduced self and role at [facility].? Pt voices understanding and consents to?assessment?at this time.? Pt resting in bed in no distress at this time.? Parents and sister @ bedside and pt agreeable to them being present during assessment. Pt is A/O at this time and answers all questions appropriately.?? Care providers, pharmacy, and demographics verified/updated at this time. PCP: Dr Ayers Specialists: Dr Gregory and Geneva Arteaga, SEARCH ENGINE MARKETING MANAGER--endocrinology. Next appt is September 27. [facility]erred [facility]acy[facility] Insurance: [employer], MMO Prescription Benefit:?yes LNOK: Parents, Lidya and Trent Living Arrangements: Lives w/parents and sister in one-story home w/3 steps to enter. Independent and manages his own medications. Transportation:?Pt states drives self and states no transportation concerns at this time.? DME: States has the following DME:?Functioning Dexcom CGM w/sufficient supplies. Pt also has a glucometer. ?Pt states no need for further DME at this time.? HHC/SNF: No hx of either Pt wishes to return home and states has no concerns with going home at time of discharge.?? Pt and family voices no further concerns/needs at this time.? PLAN:??Home eRnée RAMOSN?RN?CM
[2023-07-22] MEDS: Insulin Lispro 100 UNIT/ML INSULN.PEN 12 UNIT SC (12:09)
[2023-07-22 12:44] LABS: Bedside Glucose 101 mg/dL (74-106)
[2023-07-22 13:01] LABS: Anion Gap 4 (5-15); BUN 15 mg/dL (7-18); BUN/Creat Ratio 12.1 RATIO (10-20); Calcium,Total 8.3 mg/dL (8.5-10.1); Chloride 107 mmol/L (98-107); Creatinine, Serum 1.24 mg/dL (0.70-1.30); EST Glomerular Filtration Rate 76 mL/min (>60); Est Glom Filt Rate - Afr Amer 92 mL/min (>60); Estimated Creatinine Clearance 88.87 ml/min; Glucose 452 mg/dL (74-106); Potassium 4.3 mmol/L (3.5-5.1); Sodium Level 131 mmol/L (136-145)
[2023-07-22] MEDS: Insulin Lispro 100 UNIT/ML INSULN.PEN 15 UNIT SC (13:30)
[2023-07-22 14:47] LABS: Bedside Glucose 330 mg/dL (74-106)
[2023-07-23 02:00] LABS: Bedside Glucose 311 mg/dL (74-106)
[2023-07-24 12:52] LABS: Pathologist Review Reviewed
== END 2023-07-22 15:04 | disposition home or self-care (01) | DRG 919 ==
LOC: ED 13:33 → ICU 13:48
PROVIDERS: Family Medicine; Admitting Provider Hospitalist; Emergency Provider Emergency Medicine; PCP Family Medicine; Visit Provider Internal Medicine
DX: T85.694A Other mechanical complication of insulin pump, initial encounter (principal); E10.10 Type 1 diabetes mellitus with ketoacidosis without coma; N17.9 Acute kidney failure, unspecified; Z79.4 Long term (current) use of insulin; E87.6 Hypokalemia; T38.3X6A Underdosing of insulin and oral hypoglycemic [antidiabetic] drugs, initial encounter; Z96.41 Presence of insulin pump (external) (internal)
CPT/HCPCS: 80048; 81001; 82009; 82570; 82962; 83735; 84100; 84156; 84300; 85025; 85027; 87631; 97802; 99284; J7030; A4216; J2405; J7799

== ENCOUNTER → 2024-01-10 | Outpatient (CLI) | payer OTHER, SELFPAY ==
--- NOTE | 2024-01-10 12:21 | US_ITS ---
STUDY: ULTRASOUND BREAST - RIGHT REASON FOR EXAM: Male, 23 years old. Gynecomastia. TECHNIQUE: Axial and longitudinal images of the RIGHT breast were performed with a high resolution ultrasound transducer. # OF IMAGES: 20 COMPARISON: None. FINDINGS: RIGHT Breast: The retroareolar region was examined with ultrasound. There is evidence of fibroglandular tissue in the retroareolar region suggestive of gynecomastia. US/Breast Limited Unilateral IMPRESSION: Findings suggestive of gynecomastia. ASSESSMENT CATEGORY: BIRADS Category 2: Benign. A letter regarding these results will be sent to the patient by the facility within 30 days. Electronically Signed: Olvin Lerner MD at 14:47 EDT ,
[2024-01-18 14:10] LABS: Testosterone, % Free 2.06 % (1.50-4.20); Testosterone, Free 4.74 ng/dL (5.00-21.00); Testosterone, Total 230 ng/dL (264-916)
== END | disposition home or self-care (01) ==
PROVIDERS: Referring Provider Nurse Practitioner Family; Visit Provider Nurse Practitioner Family
DX: N62 Hypertrophy of breast (principal)
CPT/HCPCS: 36415; 76642; 84146; 84402; 84403

== ENCOUNTER → 2024-07-04 | Outpatient (CLI) | payer OTHER, SELFPAY ==
[2024-07-04 07:33] LABS: Cholesterol 132 mg/dL (200); Ferritin 155 ng/mL (26-388); Follicle Stimulating Hormone 4.8 mIU/mL; High Density Lipoprotein 51 mg/dL; Luteinizing Hormone 3.3 mIU/mL; Triglycerides 99 mg/dL; Very Low Density Lipoprotein 20 mg/dL (5-40)
[2024-07-04 10:30] LABS: Microalbumin:Creatinine Ratio 5.7 mg/g CRE (<30 mg/g CRE)
[2024-07-09 12:08] LABS: Testosterone, % Free 3.03 % (1.50-4.20); Testosterone, Free 18.36 ng/dL (5.00-21.00); Testosterone, Total 606 ng/dL (264-916)
== END | disposition home or self-care (01) ==
LOC: LAB 06:37
PROVIDERS: Referring Provider Internal Medicine Endocrinology, Diabetes & Metabolism; Visit Provider Internal Medicine Endocrinology, Diabetes & Metabolism
DX: E10.65 Type 1 diabetes mellitus with hyperglycemia (principal); Z96.41 Presence of insulin pump (external) (internal); N62 Hypertrophy of breast; R79.89 Other specified abnormal findings of blood chemistry
CPT/HCPCS: 36415; 80061; 82043; 82570; 82728; 83001; 83002; 84402; 84403

== ENCOUNTER 2024-09-19 12:41 | Emergency (ER) | payer OTHER, SELFPAY ==
[2024-09-19 12:41] VITALS: BP 127/84; PULSE 87; RESP 13; TEMP 36.2; O2SAT 99; BMI 30.5
--- NOTE | 2024-09-19 13:05 | RAD_ITS ---
PROCEDURE: FINGER(S) MIN 2 VIEWS 09/19/2024 REASON FOR EXAM: INJURY TECHNIQUE: 3 view(s) of the left 3rd and 4th fingers COMPARISON: None FINDINGS: No acute fracture or dislocation. No soft tissue gas or radiopaque foreign body. RAD/Finger(s) Min 2 Views IMPRESSION: 1. No acute fracture or radiopaque foreign body. Reading Location: [facility]
[2024-09-19] MEDS: Cephalexin 250 MG Capsule 500 MG PO (13:15)
--- NOTE | 2024-09-19 14:12 | EDS_ITS ---
HPI History of Present Illness Chief Complaint: Wound Informant: patient and family Narrative Narrative: 23-year-old male presenting to the emergency room with left middle finger injury. 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 He had the bystander remove it. He notes his last tetanus was 2021. He is a type I diabetic. [facility] Medical History Diabetes Thrombocytosis Erythrocytosis Diabetes type I Home Medications ?Medication ?Instructions ?Recorded ?Last Taken ?Type acetaminophen 500 mg capsule 1,500 mg PO DAILY PRN radha n 07/21/23 07/21/23 History insulin lispro 100 unit/mL 100 unit subcut DAILY #90 m L 05/13/24 Unknown Rx subcutaneous solution (Humalog U-100 Insulin) cephalexin 500 mg capsule 500 mg PO Q6 #28 CAPSULES Unknown Rx Allergy/AdvReac Type Severity Reaction Status Date / Time No Known Allergies Allergy Verified 09/19/24 12:44 Family History Father Hypertension Grandmother Kidney disease Social History Smoking Status: Never smoker alcohol intake: never substance use type: does not use frequency: 3-4 times per week ROS ROS ED Constitutional Constitutional ED: Denies chills or weight loss Eyes Eyes: Denies change in vision or diplopia ENT ENT ED: Denies ear pain, rhinorrhea or sore throat Cardiovascular Cardiovascular: Denies chest pain, orthopnea, palpitations or racing heartbeat Respiratory/Chest Respiratory/Chest: Denies cough, dyspnea or orthopnea Gastrointestinal Gastrointestinal: Denies abdominal pain, diarrhea, nausea or vomiting Genitourinary Genitourinary ED: Denies dysuria, hematuria or urinary frequency Musculoskeletal Musculoskeletal: Denies arthralgias or myalgias Integumentary Reports other Details: See history of present illness ; Denies abscess or rash Neurologic Neurologic: Denies headache(s) or weakness Psychiatric Psychiatric: Denies anxiety, depression, suicidal ideation or suicidal thoughts Endocrine Endocrinology: Denies polydipsia, polyphagia or polyuria Allergic/Immunologic Allergic/Immunologic ED: Denies mouth swelling, tongue swelling or urticaria EXAM Physical Exam Const Vital Signs: 09/19/24 12:41 Temperature 97.2 F L Temperature Source Temporal Pulse Rate 87 Respiratory Rate 13 Blood Pressure 127/84 H Blood Pressure Mean 98 Pulse Ox 99 Oxygen Delivery Method Room Air Positive well nourished and well developed General Appearance ED: well developed HEENT Reports normocephalic, head/scalp atraumatic and moist mucous membranes Eyes PERRL and EOMs intact bilaterally Neck no lymphadenopathy, supple and no JVD Resp normal respiratory effort and clear to auscultation bilaterally Cardio regular rate, regular rhythm and no murmurs GI normal to inspection, nondistended, normoactive bowel sounds and non-tender Palpation: soft Back/Spine no CVA tenderness and normal ROM Extremity Extremity Narrative: Left middle finger demonstrates what appears to be an entry point lateral aspect of the distal phalanx on the dorsal lateral surface. There is a slight puncture wound on the volar fat pad. The fat pad is soft. There is no nail injury. Sensation is preserved. There is no active bleeding. General Extremety ED: Negative for edema General Extremity: Negative for edema Neuro oriented x3 and CN's II-XII intact bilaterally Sensorium / Orientation: alert Motor Exam: strength 5/5 throughout Psych mental status grossly normal Mood & Affect: Negative for depressed or tearful Skin no rashes or lesions noted and no wounds MDM MDM MDM Narrative Medical decision making narrative: Differential diagnosis includes but not limited to fracture neurovascular injury wound contaminants retained foreign body nail injury My independent interpretation of the plain films of the middle finger is no acute fracture no obvious foreign body. Wound was cleansed and dressed. He was given a dose of Keflex will be discharged home with prescription for same. Local wound care discussed with patient. History & Record Review Discussion w/independent historian: Patient and Family Radiography Diagnostic Testing: Clinical Impression(s) from Imaging Studies Finger X-Ray 09/19/24 13:05 IMPRESSION: 1. No acute fracture or radiopaque foreign body. [facility] Dis[facility] Plan Triage Chief Complaint: Wound ED Provider: Gamaliel Quan Dx/Rx/DC Orders Clinical Impression: Puncture wound, Diabetes type I Instructions: ED Puncture Wound (General) Prescriptions: New cephalexin 500 mg capsule 500 mg PO Q6 Qty: 28 0RF No Action acetaminophen 500 mg capsule 1,500 mg PO DAILY PRN (Reason: pain) Patient Comments: PT STATES HAS TAKEN ABOUT 3 DAILY FOR THE PAST WEEK insulin lispro [Humalog U-100 Insulin] 100 unit/mL solution 100 unit subcut DAILY Qty: 90 3RF Rx Instructions: via insulin pump Primary Care Provider: Care Physician,No Primary Referrals: Care Physician,No Primary [Primary Care Provider] - Print Language: [place]an Disposition Disposition: Home, Self Care Discharge Date/Time: 09/19/24 14:01
== END 2024-09-19 14:01 | disposition home or self-care (01) ==
PROVIDERS: Emergency Provider Emergency Medicine; Referring Provider Emergency Medicine; Visit Provider Emergency Medicine
DX: S61.233A Puncture wound without foreign body of left middle finger without damage to nail, initial encounter (principal); E10.9 Type 1 diabetes mellitus without complications; Z79.4 Long term (current) use of insulin; W45.8XXA Other foreign body or object entering through skin, initial encounter; Y93.H2 Activity, gardening and landscaping
CPT/HCPCS: 73140; 99282; A4216

== ENCOUNTER → 2025-06-05 | Outpatient (CLI) | payer OTHER, SELFPAY ==
--- NOTE | 2025-06-05 09:40 | RAD_ITS ---
PROCEDURE: HAND MIN 3 VIEWS 06/05/2025 REASON FOR EXAM: HAND INJURY TECHNIQUE: Procedure Code: JAKE Modality: DX Procedure: HAND MIN 3 VIEWS Laterality: Right COMPARISON: None FINDINGS: There is an oblique fracture of the shaft of the 4th metacarpal. There is mild palmar angulation deformity. There is associated soft tissue swelling. RAD/Hand Min 3 Views IMPRESSION: Fracture of the 4th metacarpal shaft as described. Reading Location: [place] [id number]
== END | disposition home or self-care (01) ==
LOC: MTRAD 09:40
PROVIDERS: Referring Provider Physician Assistant Surgical; Visit Provider Physician Assistant Surgical
DX: S69.91XA Unspecified injury of right wrist, hand and finger(s), initial encounter (principal)
CPT/HCPCS: 73130